=== PATIENT | female | born 1950 | race Caucasian/White ===

== ENCOUNTER → 2023-09-08 | Day surgery (SDC) | payer OTHER ==
--- NOTE | 2023-09-08 11:27 | RAD REPORT ---
EXAM DESCRIPTION: US - Breast Core BX w/US Guidance - 09/08/2023 10:45 am CLINICAL HISTORY: Left breast mass COMPARISON: Mammo and ultrasound from 08/31/2023. TECHNIQUE: The risks, benefits alternatives to the procedure were explained to the patient and infor med consent obtained. Skin and subcutaneous tissues anesthetized with lidocaine. Under sonographic guidance, 5 x 14 gauge vacuum assisted core biopsies of the mass within the left br east obtained. 2 centimeter specimens taken. Tissue given to pathology. Subsequently a localizing clip was placed into the mass. Patient experienced no immediate complication IMPRESSION: Technically successful ultrasound-guided core biopsy of the suspicious left breast mass. No immediate complications. A biopsy clip was placed.
== END ==
LOC: DS 09:37
PROVIDERS: ATTEND Family Medicine
DX: R92.8 Other abnormal and inconclusive findings on diagnostic imaging of breast (principal)
CPT/HCPCS: 19083; 88305

== ENCOUNTER 2024-06-05 09:19 | Emergency (ER) | payer OTHER ==
--- OUTSIDE RECORDS SUMMARY | 2024-06-05 09:24 | XMS REPORT | Clinical Summary ---
Author Name Unknown Organization [facility] Address [address] [place] [address] Care Team Providers Care Hadoop Administrator Name Role Phone Hollie Juarez RN Unavailable [phone] Kaley Gardiner MD Primary Care Provider [phone] Danielle Vinson RN Unavailable [email or web address] Tracey Mireles MD Unavailable [phone] Chris Pulido MD Unavailable [phone] Yeison Rucker MD Unavailable [phone] Allergies Active Allergy Reactions Criticality Noted Date Comments Chlorhexidin-Isopropyl Alcohol Hives,Rash Low 12/03 Penicillins Rash High 10/13/2023 Medications * This document contains information received from the source organization and may not represent a complete record from that organization. famotidine (PEPCID) 40 mg tablet Take 1 tablet (40 mg) by mouth daily. 07/25/19 23 Active lifitegrast (XIIDRA OPHTHALMIC) 08/18/19 20 Active SPIRONOLACTONE ORAL 06/09/19 12 Active venlafaxine (EFFEXOR) 75 mg tablet 06/09/19 12 Active Lactobac no.41/Bifidobact no.7 (PROBIOTIC-10 ORAL) Take by mouth. Active vit C/E/Zn/coppr/lut ein/zeaxan (PRESERVISION AREDS-2 ORAL) Take by mouth. Active cholecalciferol, vitD3,/vit K2 (VITAMIN D3-VITAMIN K2 ORAL) Take by mouth. Active vitamin B complex capsule Take 1 capsule by mouth daily. Active anastrozole (ARIMIDEX) 1 mg tabletIndication s:Infiltrating ductal carcinoma of upper outer quadrant of left female breast Take 1 tablet (1 mg) by mouth daily. 90 tablet 3 01/19/20 24 Active MAGNESIUM ORAL Take 1 tablet by mouth nightly as needed. Active melatonin 10 mg cap Take 1 capsule by mouth nightly as needed. Active fezolinetant (VEOZAH) 45 mg tabletIndication s:Menopausal flushing Take 1 tablet (45 mg) by mouth daily. 30 tablet 2 05/18/20 24 Active Breo Ellipta 200-25 mcg/dose 07/25/19 23 024 Discontinued MILK THISTLE ORAL Take 350 mg by mouth twice daily. 024 Discontinued( erapy completed) UNABLE TO FIND Med Name: Curaphen/ day 024 Discontinued(St op Taking at Discharge) wpdmw-2-slh-epa- dpa-fish oil 1,050-1,200 mg cap Take by mouth. 024 Discontinued(St op Taking at Discharge) LORazepam (Ativan) 0.5 mg tabletIndication s:Infiltrating ductal carcinoma of upper outer quadrant of left female breast Take 1 tablet (0.5 mg) by mouth nightly as needed for anxiety. 4 tablet 11/20/19 24 024 Discontinued(Th erapy completed) sodium hypochlorite (Dakin's Solution) 0.125% topical solutionIndicati ons:Infiltrating ductal carcinoma of upper outer quadrant of left female breast Irrigate with as directed daily. 473 mL 4 12:30 PM CDT 11/23/19 24 024 Discontinued(Th erapy completed) acetaminophen (TylenoL) 325 mg tabletIndication s:Infiltrating ductal carcinoma of upper outer quadrant of left female breast Take 2 tablets (650 mg) by mouth every 6 (six) hours. 40 tablet 4 12:30 PM CDT 11/24/19 24 024 Discontinued(Th erapy completed) traMADol (Ultram) 50 mg tabletIndication s:Infiltrating ductal carcinoma of upper outer quadrant of left female breast Take 1 tablet (50 mg) by mouth every 6 (six) hours as needed for severe pain. 15 tablet 4 12:30 PM CDT 11/24/19 24 024 Discontinued( erapy completed) ibuprofen (ADVIL,MOTRIN) 600 mg tabletIndication s:Infiltrating ductal carcinoma of upper outer quadrant of left female breast Take 1 tablet (600 mg) by mouth every 6 (six) hours as needed for moderate pain. 20 tablet 4 12:30 PM CDT 11/24/19 24 024 Discontinued( erapy completed) traMADol (Ultram) 50 mg tabletIndication s:Acquired absence of left breast and nipple Take 1 tablet (50 mg) by mouth every 6 (six) hours as needed for severe pain. 15 tablet 4 11:46 AM WASH PLANT OPERATOR 04/18/20 24 024 Discontinued( erapy completed) Active Problems Problem Noted Date Diagnosed Date Acquired absence of left breast and nipple 12/03 Infiltrating ductal carcinom a of upper outer quadrant of left female breast 10/12/2023 Cancer Staging:Clinical stage from 10/12/2023:Stage IB(cT2, cN0, cM0, G1, ER+, MT+, HER2-) - Signed by Colette Coburn APRN on 10/12/2023 Pathologic:Stage IA(pT2, pN1mi, cM0, G1, ER+, MT+, HER2-) - Signed by Kaley Gardiner MD on 12/04/2023 Estrogen receptor positive status (ER+) 10/12/19 24 Encounters * This document contains information received from the source organization and may not represent a complete record from that organization. Date Type Department Care Team Description 05/18/2024 Orders Only [facility] [address] [place] [address], 6th [place] [address] Mechelle Sharma, GORDY 05/18/2024 Telephone Gy[facility]ologic On[facility] Center [address] [place] [address], 6th [place] [address] Mechelle Sharma, GORDY 05/18/2024 Orders Only [facility] [address] [place] [address], 6th [place] [address] Mechelle Sharma APRN Menopausal flushing (Primary Dx) 05/13/2024 Orders Only Gynecologic Oncology Center - Colposcopy [address] [place] [address], 6th [place] [address] Mechelle Sharma APRN 05/10/2024 3:00 PM WASH PLANT OPERATOR - 05/10/2024 11:59 PM WASH PLANT OPERATOR Hospital Encounter Diagnostic Laboratory Center [address] [place] [address] Yeison Rucker MD Menopausal flushing; Vaginal dryness Discharge Disposition: Home 05/10/2024 1:00 PM WASH PLANT OPERATOR Consult Gynecologic Oncology Center [address] [place] [address], [address] [place], [place] [address] [address] Yeison Rucker MD Infiltrating duct carcinoma, NOS of upper-outer quadrant of breast <Female; Left> (Primary Dx); Menopausal flushing; Vaginal dryness 05/10/2024 Travel 04/29/2024 9:30 AM WASH PLANT OPERATOR Office Visit [facility] [place] [facility] [address] [place] [address] Rachelle Marin PA Acquired absence of left breast and nipple 04/29/2024 Orders Only [facility] [address] [place] [address], 5th [place] [address] Rachelle Marin PA Acquired absence of left breast (Primary Dx) 04/29/2024 Travel 04/27/2024 Telephone [facility] - Surgical Oncology [address] [place] [address], 5th [place] [address] Danielle Vinson RN 04/22/2024 10:00 AM WASH PLANT OPERATOR Telemedicine [facility] - Medical Oncology [address] [place] [address], 5th [place] [address] Keyanna Villegas MD Infiltrating duct carcinoma, NOS of upper-outer quadrant of breast <Female; Left> (Primary Dx); Menopausal flushing; Vaginal dryness 04/21/2024 Telephone [facility] - Medical Oncology [address] [place] [address], 5th [place] [address] Franci Quezada, RN 04/20/2024 Telephone [facility] [place] [facility] Surgical Oncology [address] [place] [address] Rosie Montgomery RN 04/18/2024 10:26 AM WASH PLANT OPERATOR Anesthesia Event Pre-Op/Surgery Check-In [address] [place] [address], 4th [place] [address] Jaguar Cherry MD 04/18/2024 9:25 AM WASH PLANT OPERATOR - 04/18/2024 11:30 AM WASH PLANT OPERATOR Surgery Pre-Op/Surgery Check-In [address] [place] [address], 4th [place] [address] Chris Pulido MD REPLACEMENT OF TISSUE DEWER WITH PERMANENT PROSTHESIS 04/18/2024 7:09 AM WASH PLANT OPERATOR - 04/18/2024 12:26 PM WASH PLANT OPERATOR Hospital Encounter Pre-Op/Surgery Check-In [address] [place] [address], 4th Floor [facility] [place] [address] Chris Pulido MD Infiltrating ductal carcinoma of upper outer quadrant of left female breast; Acquired absence of left breast and nipple; Infiltrating duct carcinoma of left female breast Discharge Disposition: Home 04/18/2024 Travel 04/16/2024 Travel 04/15/2024 1:00 PM WASH PLANT OPERATOR POEM Appointments Perioperative Evaluation and Management Center [address] [place] [address], [facility] [place] [address] Rachelle Marin PA Infiltrating duct carcinoma of left female breast; Acquired absence of left breast and nipple 04/06/2024 11:59 PM CDT Anesthesia Event Perioperative Evaluation [facility] Management Center [address] [place] [address], [facility] [place] [address] Danielle Oswald, HENRI 03/30/2024 10:00 AM CDT Office Visit [facility] [place] [facility] [address] [place] [address] Chris Pulido MD Infiltrating duct carcinoma of left female breast; Acquired absence of left breast and nipple 03/30/2024 Travel 03/01/2024 Telephone [facility] - Surgical Oncology [address] [place] [address], 5th [place] [address] Danielle Vinson, RN 02/26/2024 Prep for Surgery [facility] [place] [facility] [address] [place] [address] Rachelle Marin PA Infiltrating ductal carcinoma of upper outer quadrant of left female breast (Primary Dx); Acquired absence of left breast and nipple 02/25/2024 Telephone [facility] [place] - Surgical Oncology [address] [place] [address] Rosie Montgomery RN 01/29/2024 11:26 AM CDT - 01/29/2024 11:59 PM CDT Hospital Encounter Nuclear Medicine [address] [place] [address], 6th Floor, [place] [address] Keyanna Villegas MD Discharge Disposition: Home 01/29/2024 8:57 AM CDT - 01/29/2024 11:25 AM CDT Hospital Encounter Nuclear Medicine [address] [place] [address], 6th Floor, [place] [address] Keyanna Villegas MD Infiltrating ductal carcinoma of upper outer quadrant of left female breast Discharge Disposition: Home 01/29/2024 7:50 AM CDT Ancillary Procedure CT Imaging [address] [place] [address], 7th [place] [address] Keyanna Villegas MD Infiltrating ductal carcinoma of upper outer quadrant of left female breast 01/22/2024 Telephone [facility] [place] [facility] [address] [place] [address], 5th [place] [address] Danielle Vinson, RN 01/19/2024 8:00 AM CDT Follow-Up [facility] - Medical Oncology [address] [place] [address], 5th [place] [address] Keyanna Villegas MD Infiltrating ductal carcinoma of upper outer quadrant of left female breast (Primary Dx); Secondary and unspecified malignant neoplasm of axilla and upper limb lymph nodes; Hypercalcemia; Osteopenia 01/19/2024 Travel 01/06/2024 9:40 AM CDT - 01/06/2024 11:59 PM CDT Hospital Encounter Radiation Oncology [address] [place] [address], 1st [place] [address] Tracey Mireles MD Infiltrating ductal carcinoma of upper outer quadrant of left female breast Discharge Disposition: Home 01/06/2024 Travel 12/23/2023 Telephone [facility] [place] [facility] [address] [place] [address], 5th [place] [address] Ariane Gomez APRN Follow-up 12/21/2023 Orders Only Radiation Oncology [address] [place] [address], 1st Floor near [facility] [place] [address] Jordyn Coello APRN Infiltrating ductal carcinoma of upper outer quadrant of left female breast (Primary Dx) 2023 2:30 PM CDT Clinical Support [facility] [place] [facility] On[facility] [address] [place] [address] Rachelle Marin PA Luico, Elaine B RN Acquired absence of left breast and nipple 2023 Travel 12/04/2023 10:00 AM CDT Office Visit [facility] [place] [facility] [address] [place] [address], 5th [place] [address] Kaley Gardiner MD Infiltrating ductal carcinoma of upper outer quadrant of left female breast 12/04/2023 8:30 AM CDT Office Visit [facility] [place] - [facility] Surgery [address] [place] [address] Rachelle Marin PA Acquired absence of left breast and nipple (Primary Dx); Infiltrating ductal carcinoma of upper outer quadrant of left female breast; Encounter for other specified surgical aftercare 12/04/2023 Documentation [facility] [place] [facility] [address] [place] [address], 5th [place] [address] Poonam Garzon BSN 12/04/2023 Travel 12/02/2023 Orders Only [facility] [place] [facility] [address] [place] [address], 5th [place] [address] Ariane Gomez APRN Infiltrating ductal carcinoma of upper outer quadrant of left female breast (Primary Dx) 11/30/2023 Telephone [facility] [place] [facility] [address] [place] [address], 5th [place] [address] Danielle Vinson, RN 11/30/2023 Telephone [facility] [place] - Surgical Oncology [facility] [place] [address] Rosie Montgomery RN 11/23/2023 9:55 AM CDT - 11/23/2023 3:05 PM CDT Surgery MAIN OR [address] [place] [address] Kaley Gardiner MD SKIN SPARING TOTAL MASTECTOMY 11/23/2023 9:39 AM CDT Anesthesia Event MAIN OR [address] [place] [address] Eagle Jeffrey MD 11/23/2023 8:25 AM CDT - 11/23/2023 11:59 PM CDT Hospital Encounter Breast Imaging [address] [facility], 5th [place] [address] Genet Nuno APRN Discharge Disposition: Home 11/23/2023 7:40 AM CDT - 11/24/2023 1:49 PM CDT Hospital Encounter MAIN P[facility]B [address] [facility] [place] [address] Kaley Gardiner MD Infiltrating ductal carcinoma of upper outer quadrant of left female breast (Primary Dx) Discharge Disposition: Home 11/23/2023 Travel 11/20/2023 1:33 PM CDT - 11/20/2023 11:59 PM CDT Hospital Encounter Nuclear Medicine [address] [place] [address], 6th Floor, [place] [address] Genet Nuno, GORDY Discharge Disposition: Home 11/20/2023 1:00 PM CDT POEM Appointments Perioperative Evaluation and Management Center [facility], 6th [place] [address] Genet Nuno, CHECK WEIGHER Infiltrating ductal carcinoma of upper outer quadrant of left female breast 11/20/2023 12:00 PM CDT - 11/20/2023 1:32 PM CDT Hospital Encounter Nuclear Medicine [address] [place] [address], 6th Floor, [place] [address] Genet Nuno, CHECK WEIGHER Discharge Disposition: Home 11/20/2023 11:00 AM CDT - 11/20/2023 11:59 AM CDT Hospital Encounter Nuclear Medicine [address] [place] [address], 6th Floor, [place] [address] Genet Nuno, GORDY Infiltrating ductal carcinoma of upper outer quadrant of left female breast Discharge Disposition: Home 11/20/2023 9:30 AM CDT Office Visit [facility] - Surgical Oncology [address] [place] [address], 5th [place] [address] Kaley Gardiner MD Infiltrating ductal carcinoma of upper outer quadrant of left female breast 11/20/2023 Travel 11/19/2023 11:59 PM CDT Anesthesia Event Perioperative [facility] [address] [facility], 6th [place] [address] Handy Olivier, CHECK WEIGHER 11/19/2023 Telephone [facility] - Surgical Oncology [address] [place] [address], 5th [place] [address] Danielle Vinson RN 11/18/2023 10:45 AM CDT Consult [facility] [place] - Plastic Surgery [address] [place] [address] Chris Pulido MD Infiltrating ductal carcinoma of upper outer quadrant of left female breast 11/18/2023 Travel 11/17/2023 Orders Only [facility] [place] - [facility] [address] [place] [address] Rachelle Marin PA Infiltrating ductal carcinoma of upper outer quadrant of left female breast (Primary Dx) 11/13/2023 9:00 AM CDT - 11/13/2023 11:59 PM CDT Hospital Encounter Diagnostic Laboratory Center [address] [place] [address] Melinda Cintron APRN Infiltrating ductal carcinoma of upper outer quadrant of left female breast Discharge Disposition: Home 11/11/2023 10:00 AM CDT Telephone Breast Center [address] [place] [address], 5th [place] [address] Colette Coburn, Lula [facility] 11/11/2023 Orders Only Breast Center [address] [place] [address], 5th [place] [address] Lula Kaur Infiltrating ductal carcinoma of upper outer quadrant of left female breast (Primary Dx) 11/03/2023 8:15 PM CDT Ancillary Procedure Image Library [address] [place] [address] Kaley Gardiner MD Cancer 11/03/2023 8:10 PM CDT Ancillary Procedure Image Library [address] [place] [address] Kaley Gardiner MD Cancer 11/03/2023 8:05 PM CDT Ancillary Procedure Image Library [address] [place] [address] Kaley Gardiner MD Cancer 11/03/2023 8:00 PM CDT Ancillary Procedure Image Library [address] [place] [address] Kaley Gardiner MD Cancer 10/23/2023 Orders Only [facility] [place] [facility] [address] [place] [address], [facility] [place] [address] Genet Nuno APRN Infiltrating ductal carcinoma of upper outer quadrant of left female breast (Primary Dx) 10/23/2023 Prep for Surgery [facility] [place] [facility] [address] [place] [address], [address] [place], [place] [address] [address] Genet Nuno APRN Infiltrating ductal carcinoma of upper outer quadrant of left female breast (Primary Dx) 10/15/2023 Telephone [facility] [place] [facility] [address] [place] [address], [address] [place] [address] Danielle Vinson RN 10/13/2023 3:58 PM CDT - 10/13/2023 11:59 PM CDT Hospital Encounter Diagnostic Laboratory Center [address] [place] [address] Colette Coburn APRN Infiltrating ductal carcinoma of upper outer quadrant of left female breast; Estrogen receptor positive status (ER+) Discharge Disposition: Home 10/13/2023 3:30 PM CDT Office Visit Breast Center - Multidisciplinary Team [address] [place] [address], [address] [place] [address] Tracey Mireles MD Infiltrating ductal carcinoma of upper outer quadrant of left female breast (Primary Dx) 10/13/2023 3:00 PM CDT Office Visit Breast Center - Multidisciplinary Team [address] [place] [address], [facility] [place] [address] Keyanna Villegas MD Infiltrating duct carcinoma of breast <Left side> (Primary Dx); Osteopenia 10/13/2023 2:30 PM CDT Office Visit Breast Center - Multidisciplinary Team [address] [place] [address], [facility] [place] [address] Kaley Gardiner MD Infiltrating ductal carcinoma of upper outer quadrant of left female breast (Primary Dx); Estrogen receptor positive status (ER+) 10/13/2023 12:00 PM CDT Office Visit Breast Center - Multidisciplinary Team [address] [place] [address], [address]th [place] [address] Colette Coburn, GORDY Infiltrating ductal carcinoma of upper outer quadrant of left female breast (Primary Dx); Estrogen receptor positive status (ER+) 10/13/2023 10:00 AM CDT Ancillary Procedure X-Ray Outpatient Center [address] [place] [address], [address] [place] [address] Colette Coburn APRN Infiltrating ductal carcinoma of upper outer quadrant of left female breast; Estrogen receptor positive status (ER+) 10/13/2023 Telephone [facility] [place] [facility] On[facility] [address] [place] [address], [address] [place] [address] Hollie Juarez RN Follow-up 10/13/2023 Travel 10/12/2023 12:58 PM CDT - 10/12/2023 11:59 PM CDT Hospital Encounter Breast Imaging [address] [place] [address], [address] [place] [address] Colette Coburn, CHECK WEIGHER Infiltrating duct carcinoma of female breast <Left side> Discharge Disposition: Home 10/12/2023 11:30 AM CDT NPR MDA PATIENT ACCESS Kaley Gardiner MD 10/12/2023 11:14 AM CDT - 10/12/2023 12:57 PM CDT Hospital Encounter Breast Imaging [address] [place] [address], [address] [place] [address] Colette Coburn APRN Infiltrating duct carcinoma of female breast <Left side> Discharge Disposition: Home 10/12/2023 Travel 10/09/2023 9:25 PM CDT Ancillary Procedure Image Library [address] [place] [address] Leonard MD Cancer 10/09/2023 9:20 PM CDT Ancillary Procedure Image Library [address] [place] [address] Leonard MD Cancer 10/09/2023 9:15 PM CDT Ancillary Procedure Image Library [address] [place] [address] [address] Leonard MD Cancer 10/09/2023 9:10 PM CDT Ancillary Procedure Image Library [address] [place] [address] Leonard MD Cancer 10/09/2023 9:05 PM CDT Ancillary Procedure Image Library [address] [place] [address] Leonard MD Cancer 10/09/2023 9:00 PM CDT Ancillary Procedure Image Library [address] [place] [address] Leonard MD Cancer 10/09/2023 8:55 PM CDT Ancillary Procedure Image Library [address] [place] [address] Leonard MD Cancer 10/09/2023 8:50 PM CDT Ancillary Procedure Image Library [address] [place] [address] Leonard MD Cancer 10/09/2023 8:45 PM CDT Ancillary Procedure Image Library [address] [place] [address] Leonard MD Cancer 10/09/2023 8:40 PM CDT Ancillary Procedure Image Library [address] [place] [address] Leonard MD Cancer 10/09/2023 8:35 PM CDT Ancillary Procedure Image Library [address] [place] [address] Leonard MD Cancer 10/09/2023 8:30 PM CDT Ancillary Procedure Image Library [address] [place] [address] Leonard MD Cancer 10/09/2023 8:25 PM CDT Ancillary Procedure Image Library [address] [place] [address] Leonard MD Cancer 10/09/2023 8:20 PM CDT Ancillary Procedure Image Library [address] [place] [address] Lane Leonard MD Cancer 10/09/2023 8:15 PM CDT Ancillary Procedure Image Library [address] [place] [address] Lane Leonard MD Cancer 10/09/2023 8:10 PM CDT Ancillary Procedure Image Library [address] [place] [address] Lane Leonard MD Cancer 10/09/2023 8:05 PM CDT Ancillary Procedure Image Library [address] [place] [address] Lane Leonard MD Cancer 10/09/2023 8:00 PM CDT Ancillary Procedure Image Library [address] [place] [address] Lane Leonard MD Cancer 10/06/2023 Lab Requisition [facility] Chris Mclain MD Witson, Anne S., MD 09/23/2023 Telephone [facility] - Medical Oncology [address] [place] [address], [facility] [place] [address] Hollie Juarez RN New Patient 09/22/2023 Orders Only Breast Center - Multidisciplinary Team [address] [place] [address], [facility] [place] [address] Colette Coburn, CHECK WEIGHER Infiltrating duct carcinoma of female breast <Left side> (Primary Dx) after 06/06/2023 Surgical History Surgery Date Site/Laterality Comments HYSTERECTOMY 1998 partial COSMETIC SURGERY Forehead lift MT MASTECTOMY SIMPLE COMPLETE 11/23/2023 Breast/Left Procedure: SKIN SPARING TOTAL MASTECTOMY; Surgeon: Kaley Gardiner MD; Location: MAIN OR; Service: BREAST Medical devices from this surgery are in the Medical Devices section. MT INTRAOP SENTINEL LYMPH NODE ID W/DYE INJECTION 11/23/2023 Breast/Left Procedure: INTRAOPERATIVE LYMPHATIC MAPPING; Surgeon: Kaley Gardiner MD; Location: MAIN OR; Service: BREAST Medical devices from this surgery are in the Medical Devices section. MT BX/EXC LYMPH NODE OPEN DEEP AXILLARY NODE 11/23/2023 Axilla/Left Procedure: SENTINEL NODE BIOPSY - AXILLA; Surgeon: Kaley Gardiner MD; Location: MAIN OR; Service: BREAST Medical devices from this surgery are in the Medical Devices section. MT TISSUE DEWER PLACEMENT BREAST RECONSTRUCTION 11/23/2023 Breast/Left Procedure: RECONSTRUCTION OF BREAST WITH TISSUE DEWER; Surgeon: Chris Pulido MD; Location: MAIN OR; Service: PLS - PLASTIC SURGERY Medical devices from this surgery are in the Medical Devices section. MT IMPLNT BIO IMPLNT FOR SOF T TISSUE REINFORCEMENT 11/23/2023 Breast/Left Procedure: IMPLANTATION OF BIOLOGIC IMPLANT (EG, ACELLULAR DERMAL MATRIX) FOR SOFT TISSUE REINFORCEMENT; Surgeon: Chris Pulido MD; Location: MAIN OR; Service: PLS - PLASTIC SURGERY Medical devices from this surgery are in the Medical Devices section. LIPOSUCTION MT REPLACEMENT TISSUE DEWER W/PERMANENT IMPLANT 04/18/2024 Breast/Left Procedure: REPLACEMENT OF TISSUE DEWER WITH PERMANENT PROSTHESIS; Surgeon: Chris Pulido MD; Location: [facility]; Service: PLS - PLASTIC SURGERY Medical devices from this surgery are in the Medical Devices section. Medical History Medical History Date Comments Hypertension 1997 Hyperlipidemia 2009 Allergic rhinitis 2019 take allergy s hots Asthma August 2022 Menopause 2007 Arthritis 2019 Lower back Anxiety 1974 Family History Medical History Relation Name Comments Prostate cancer Brother Vance Osorio s/p surgery , localized Leukemia Maternal Uncle Ovarian cancer Mother Duane Cadena Diagnosed 2001 Breast cancer Paternal Cousin 1 Suspected to have come other side of the family Relation Name Status Comments Brother Vance Osorio Alive Father (Age 49) d. sepsis Grandson 1 Alive Grandson 2 Alive Maternal Grandfather (Age 50s) Maternal Grandmother (Age 70s) Maternal Uncle (Age 3) Mother Duane Cadena (Age 81) Niece Alive Paternal Aunt 1 (Age 80s) Paternal Aunt 2 (Age 80s) Paternal Cousin 1 (Age 30s) Paternal Cousin 2 Alive Paternal Cousin 3 Alive Paternal Cousin 4 Alive Paternal Cousin 5 Alive Paternal Cousin 6 Alive Paternal Cousin 7 Alive Paternal Grandfather (Age 60s) Paternal Grandmother (Age 60s) Paternal Uncle (Age 80s) Sister 1 Alive Sister 2 Alive Sister 3 (Age 75) Son Alive Social History Tobacco Use Types Packs/Day Years Used Date Smoking Tobacco: Never Smokeless Tobacco: Never Alcohol Use Standard Drinks/Week Comments Yes 10 (1 standard drink = 0.6 oz pu re alcohol) Comments No Sex and Gender Information Value Date Recorded Sex Assigned at Female 09/22/2023 8:09 AM CDT Legal Sex Female 7:49 AM CDT Gender Identity Female 09/22/2023 8:09 AM CDT Sexual Orientation Straight 09/22/2023 8: 09 AM CDT Travel History Travel Start Travel End [facility] 01/08/2024 01/17/2024 Obstetrics History Para Term AB IAB SAB Ectopic Multiple Livin g Live Births 1 1 1 Date Outcome GA Total Labor Labor/2nd/3rd Weight Sex Type Anes PTL Fiona A1 A5 Name Clin Para Comments PARADI TENDER History: Menarche:15 G 1 P1 Age at first parity:21 history:3 months control pill use:2 years IVF: None Hormone Replacement Therapy use:8 years Menopause: Postmenopausal Bra Size: 36D Last Filed Vital Signs Vital Sign Reading Time Taken Comments Blood Pressure 148/87 05/10/2024 1:09 PM WASH PLANT OPERATOR Pulse 64 05/10/2024 1:09 PM WASH PLANT OPERATOR Temperature 36.9 C (98.4 F) 05/10/2024 1:09 PM CS T Respiratory Rate 18 05/10/2024 1:09 PM WASH PLANT OPERATOR Oxygen Saturation 96% 05/10/2024 1:09 PM WASH PLANT OPERATOR Inhaled Oxygen Concentration - - Weight 62.1 kg (136 lb 14.5 oz) 05/10/2024 1:05 PM WASH PLANT OPERATOR Height 160 cm (5' 3") 11/23/2023 4:15 PM CDT Body Mass Index 24.25 11/23/2023 4:15 PM CDT Plan of Treatment Upcoming Encounters Date Type Department Care Team (Late st Contact Info) Description 08/02/2024 1:30 PM WASH PLANT OPERATOR [facility] [address] [place] [address], 5th [place] [address] Rachelle Marin PA [address] [place] [address] [email or web address] RN [facility] [place] [address] [email or web address] 10/21/2024 9:00 AM CDT Follow-Up [facility] [place] - Medical Oncology [address] [place] [address], 5th [place] [address] Keyanna Villegas MD [facility] [place] [address] [email or web address] 12/02/2024 8:05 AM CDT Appointment Breast Imaging [address] [place] [address], 5th [place] [address] Genet Nuno, CHECK WEIGHER [facility] [place] [address] [email or web address] 12/02/2024 10:30 AM CDT Follow-Up [facility] - Surgical Oncology [address] [place] [address], 5th [place] [address] Kaley Gardiner MD [facility] [place] [address] [email or web address] Health Maintenance Due Date Last Done Comments COVID-19 Vaccine (#1) 1955 Pneumococcal Vaccine: 65+ Years (1 of 1 - PCV) 018 Influenza Vaccine (#1) 2024 Medical Devices Implanted Type Area Blender Device Identifier Shelf Expiration Date Model / Serial / Lot Francisco Cohesive Silicone Implant, Low Plus Profile 490cc - 15x3.9cm - [id number] Implanted:Qty : 1 on 04/18/2024 by Chris Pulido MD at [facility] Breast Left: Breast [employer] [id number] 03/30/2028 SCLP-490 / [id number] / [id number] Matrix Tiss [id number] Aldrm Slct - [id number] Implanted:Qty : 1 on 11/23/2023 by Chris Pulido MD at [facility] Skin/Tiss ue Left: Breast [employer] 08/05/2025 [id number] / [id number] Explanted Type Area Blender Device Identifier Shelf Expiration Date Model / Serial / Lot Moderate Height Breast Smooth Tissue Bottle Capper W Suture Tabs 600cc-[id number]. 3cm - [id number] Implanted:Qty: 1 on 11/23/2023 by Chris Pulido MD at [facility] Explanted:Qty: 1 on 04/18/2024 by Chris Pulido MD Breast Left: Breast [employer] 10/23/2024 [id number] / [id number] / [id number] Procedures Procedure Name Priority Date/Time Associated Diagnosis Comments HEPATIC FUNCTION PANEL Routine 3:05 PM WASH PLANT OPERATOR Menopausal flushing Vaginal dryness PATHOLOGY SURGICAL INTERPRETATION Routine 04/18/2024 10:56 AM WASH PLANT OPERATOR Infiltrating ductal carcinoma of upper outer quadrant of left female breast Acquired absence of left breast and nipple MT REPLACEMENT TISSUE DEWER W/PERMANENT IMPLANT 04/18/2024 10:09 AM WASH PLANT OPERATOR Infiltrating ductal carcinoma of upper outer quadrant of left female breast Acquired absence of left breast and nipple Special Needs [id number] PRINCE POC GLUCOSE SCREEN Routine 04/18/2024 8: 22 AM WASH PLANT OPERATOR .CBC Routine 03/30/2024 9:18 AM CDT Infiltrating duct carcinoma of left female breast Acquired absence of left breast and nipple HEMOGLOBIN A1C Routine 03/30/2024 9:18 AM CDT Infiltrating duct carcinoma of left female breast Acquired absence of left breast and nipple GLUCOSE, RANDOM Routine 03/30/2024 9:18 AM CDT Infiltrating duct carcinoma of left female breast Acquired absence of left breast and nipple CREATININE Routine 03/30/2024 9:18 AM CDT Infiltrating duct carcinoma of left female breast Acquired absence of left breast and nipple BLOOD UREA NITROGEN Routine 03/30/2024 9 :18 AM CDT Infiltrating duct carcinoma of left female breast Acquired absence of left breast and nipple ELECTROLYTE PANEL Routine 03/30/2024 9:1 8 AM CDT Infiltrating duct carcinoma of left female breast Acquired absence of left breast and nipple COMPLETE BLOOD COUNT W/ DIFFERENTIAL Routine 03/30/2024 9:18 AM CDT Infiltrating duct carcinoma of left female breast Acquired absence of left breast and nipple NM BONE SCAN WHOLE BODY Routine 01/29/20 12:02 PM CDT Infiltrating ductal carcinoma of upper outer quadrant of left female breast CT CHEST ABDOMEN PELVIS W CONTRAST Routine 01/29/2024 8:54 AM CDT Infiltrating ductal carcinoma of upper outer quadrant of left female breast POC CREATININE Routine 01/29/2024 8:22 AM CDT TISSUE EXPANSION Routine 12/04/2023 8:50 AM CDT Acquired absence of left breast and nipple AP ONCOTYPEDX (SEND OUT) MATERIAL REQUEST Routine 12/02/2023 7:14 PM CDT Infiltrating ductal carcinoma of upper outer quadrant of left female breast NM DOSING APPOINTMENT Routine 11/23/2023 6:02 PM CDT Infiltrating ductal carcinoma of upper outer quadrant of left female breast PATHOLOGY SURGICAL INTERPRETATION Routine 11/23/2023 11:14 AM CDT Infiltrating ductal carcinoma of upper outer quadrant of left female breast MT IMPLNT BIO IMPLNT FOR SOFT TISSUE REINFORCEMENT 11/23/2023 9:09 AM CDT Infiltrating ductal carcinoma of upper outer quadrant of left female breast Special Needs MTL@0800 MT TISSUE DEWER PLACEMENT BREAST RECONSTRUCTION 11/23/2023 9:09 AM CDT Infiltrating ductal carcinoma of upper outer quadrant of left female breast Special Needs MTL@0800 MT BX/EXC LYMPH NODE OPEN DEEP AXILLARY NODE 11/23/2023 9:09 AM CDT Infiltrating ductal carcinoma of upper outer quadrant of left female breast Special Needs MTL@0800 MT INTRAOP SENTINEL LYMPH NODE ID W/DYE INJECTION 11/23/2023 9:09 AM CDT Infiltrating ductal carcinoma of upper outer quadrant of left female breast Special Needs MTL@0800 MT MASTECTOMY SIMPLE COMPLETE 11/23/2023 9:09 AM CDT Infiltrating ductal carcinoma of upper outer quadrant of left female breast Special Needs MTL@0800 BREAST SPECIMEN RADIOGRAPH Routine 11/23/2023 8:25 AM CDT Infiltrating ductal carcinoma of upper outer quadrant of left female breast SCAN GENETIC TESTING RESULTS 11/23/2023 NM LYMPHOSCINTIGRAPHY BREAST Routine 11/20/2023 1:40 PM CDT Infiltrating ductal carcinoma of upper outer quadrant of left female breast ZINVITAE Routine 11/13/2023 9:08 AM CDT Infiltrating ductal carcinoma of upper outer quadrant of left female breast SCAN GENETIC TESTING RESULTS 11/13/2023 .CBC Routine 10/13/2023 4:05 PM CDT Infiltrating ductal carcinoma of upper outer quadrant of left female breast Estrogen receptor positive status (ER+) PROTHROMBIN TIME Routine 10/13/2023 4:05 PM CDT Infiltrating ductal carcinoma of upper outer quadrant of left female breast Estrogen receptor positive status (ER+) APTT Routine 10/13/2023 4:05 PM CDT Infiltrating ductal carcinoma of upper outer quadrant of left female breast Estrogen receptor positive status (ER+) THYROID STIMULATING HORMONE Routine 10/13/2023 4:05 PM CDT Infiltrating ductal carcinoma of upper outer quadrant of left female breast Estrogen receptor positive status (ER+) HEMOGLOBIN A1C Routine 10/13/2023 4:05 PM CDT Infiltrating ductal carcinoma of upper outer quadrant of left female breast Estrogen receptor positive status (ER+) FREE THYROXINE Routine 10/13/2023 4:05 PM CDT Infiltrating ductal carcinoma of upper outer quadrant of left female breast Estrogen receptor positive status (ER+) COMPREHENSIVE METABOLIC PANEL Routine 10/13/2023 4:05 PM CDT Infiltrating ductal carcinoma of upper outer quadrant of left female breast Estrogen receptor positive status (ER+) COMPLETE BLOOD COUNT W/ DIFFERENTIAL Routine 10/13/2023 4:05 PM CDT Infiltrating ductal carcinoma of upper outer quadrant of left female breast Estrogen receptor positive status (ER+) XR CHEST 2 VW Routine 10/13/2023 4:00 PM CDT Infiltrating ductal carcinoma of upper outer quadrant of left female breast Estrogen receptor positive status (ER+) EKG, 12-LEAD (SCHEDULED) Routine 10/13/2023 Infiltrating ductal carcinoma of upper outer quadrant of left female breast Estrogen receptor positive status (ER+) US CHEST Routine 10/12/2023 2:18 PM CDT Infiltrating duct carcinoma of female breast <Left side> US BREAST COMPLETE LEFT Routine 10/12/19 2:18 PM CDT Infiltrating duct carcinoma of female breast <Left side> MAMMO DIGITAL DIAGNOSTIC BILATERAL W AASHISH Routine 10/12/2023 12:58 PM CDT Infiltrating duct carcinoma of female breast <Left side> OSI US BREAST BIOPSY Routine 09/08/2023 12:36 PM CDT Cancer PATHOLOGY OUTSIDE INTERPRETATION Routine 09/08/2023 OSI MAMMO BILATERAL Routine 08/31/2023 12:36 PM CDT Cancer OSI BREAST Routine 08/31/2023 12:36 PM CDT Cancer OSI BREAST Routine 08/31/2023 12:36 PM CDT Cancer after 06/06/2023 Results * (ABNORMAL) Hepatic Function Panel (05/10/2024 3:05 PM WASH PLANT OPERATOR) Bilirubin Total 0.5 0.0 - 1.2 mg/dL 05/10/2024 3:40 PM [facility] Comment:Indocyanine Green (I CG) may cause falsely elevated bilirubin results. Total and direct bilirubin must not be measured from samples containing indocyanine green. False elevation of total bilirubin can be seen in patients with IgG concentrations above 28 g/L. Bilirubin Direct 0.1 0.0 - 0.2 mg/dL 05/10/2024 3:40 PM [facility] Comment:Indocyanine Green (I CG) may cause falsely elevated bilirubin results. Total and direct bilirubin must not be measured from samples containing indocyanine green. Bilirubin Indirect 0.4 0.0 - 1.0 mg/dL 05/10/2024 3:40 PM [facility] Tot Protein 8.0 6.4 - 8.3 gm/dL 05/10/2024 3:40 PM [facility] Alkaline Phosphatase 97 35 - 104 U/L 05/10/2024 3:40 PM [facility] Albumin Level 5.0 3.5 - 5.2 gm/dL 05/10/2024 3:40 PM [facility] AST 26 <=32 U/L 05/10/2024 3:40 PM [facility] ALT 35(H) <=33 U/L 05/10/2024 3:40 PM [facility] Blood Peripheral blood specimen / Unknown Venipuncture / Unknown 05/10/2024 3:05 PM WASH PLANT OPERATOR 05/10/2024 3:11 PM WASH PLANT OPERATOR us Yeison Rucker MD LAB BLOOD ORDERABLES Final R esult [facility] [address] [facility] [place] [address] * Pathology Surgical Interpretation (04/18/2024 10:56 AM WASH PLANT OPERATOR) Only the most recent of2 resultswithin the time period is included. Submitted Clinical History Infiltrating ductal carcinoma of upper outer quadrant of left female breast [C50.412] Acquired absence of left breast and nipple [Z90.12] 04/19/2024 11:58 AM WASH PLANT OPERATOR [employer] [facility] Diagnosis A. Left breast, mastectomy skin, excision: Skin with scar and perivascular chronic lymphocytic infiltrate, no tumor present. B. Left breast, tissue river pilot, removal: Tissue river pilot (medical field representative), gross diagnosis only. 04/19/2024 11:58 AM [facility] Gross Description A: Breast, left, mastectomy skin, permanent: A 4.5 x 0.5 x 0.4 cm unoriented strip of pink skin remarkable for a linear well-healed scar that extends the entire length. SECTION CODE: A1-accounts receivable representative sections KR Cold Ischemia and Fixation Times Meet requirements specified in latest version of the ASCO/CAP guidelines. Cold ischemia time: 24m Fixative: 10% Neutral Buffered Formalin In fixative: 04/18/2024 11:20 AM Fixation time: > 6 hours and < 72 hours B: Breast, left, tissue river pilot, for id only: A 15.5 x 14.0 x 2.7 cm [employer]er[employer] brand tissue river pilot filled with clear fluid. Identifying information is as follows: Style SMV, lot #[id number], 15 cm-600 cc. Gross only. KR 04/19/2024 11:58 AM [facility] Biomarker Block(s) Block for biomarker testing: N/A Normal block: N/A 04/19/2024 11:58 AM [facility] Disclaimer "Some tests reported here may have been developed and performance characteristics determined by [facility] Pathology and Laboratory Medicine. These tests have not been specifically cleared or approved by the U.S. Food and Drug Administration. If applicable, controls were reviewed and showed appropriate reactivity." 04/19/2024 11:58 AM [facility] Tissue (Breast, Left) 04/18/2024 10:56 AM WASH PLANT OPERATOR 04/18/2024 11:23 AM WASH PLANT OPERATOR Foreign Object (Breast, Left, Tissue Bottle Capper) 04/18/2024 10:57 AM WASH PLANT OPERATOR 04/18/2024 11:24 AM WASH PLANT OPERATOR Chris Pulido MD LAB PATHOLOGY ORDERABLES Dulce l Result Performing Organization Address [facility]/ZIP Co de Phone Number [address] [address], * (ABNORMAL) POC Glucose Screen - Fingerstick (04/18/2024 8:22 AM WASH PLANT OPERATOR) Glucose Screen 113(H) 70 - 99 mg/dL 04/18/2024 8:27 AM WASH PLANT OPERATOR [facility] POC Sample Type Venous 04/18/2024 8:27 AM [facility] Blood 04/18/2024 8:22 AM WASH PLANT OPERATOR 04/18/2024 8:27 AM WASH PLANT OPERATOR Narrative [facility] - 04/18/2024 8:27 AM WASH PLANT OPERATOR Capillary blood samples, e.g. obtained by fingerstick, may have inaccurate results in patients with decreased peripheral blood flow. Method description: All results are measured using Electrochemistry test methodology. The glucose in the sample mixes with the reagents on the test strip. The reaction produces an electric current. The amount of current produced is proportional to the glucose concentration in the blood. All POC Glucose screen test results, including critical values, must be interpreted and evaluated in the context of the patients' clinical findings. It is recommended to confirm any questionable test results by core lab methodology. Chris Pulido MD POCT ORDERABLES - DEVICE Dulce l Result Performing Organization Address [facility] Co de Phone Number [facility] Unless otherwise noted, all lab tests performed by: Division of Pathology and Laboratory Medicine [address] [place] [id number] * Glucose, Random (03/30/2024 9:18 AM CDT) Glucose Random 107 70 - 199 mg/dL 03/30/2024 9:43 AM CDT [facility] Blood Peripheral blood specimen / Unknown Venipuncture / Unknown 03/30/2024 9:18 AM CDT 03/30/2024 9:18 AM CDT Narrative [facility] [place] - 03/30/2024 9:43 AM CDT Effective 01/02/16, the glucose reference intervals have been updated based on [employer] Diabetes Association guidelines (Standards of Medical Care in Diabetes 2016. Diabetes Care 2016; 39: S13-S22). Fasting blood glucose: Normal: 70-99 mg/dL Impaired fasting glucose (increased risk for diabetes or pre-diabetes): 100-125 mg/dL Diabetes mellitus: >/=126 mg/dL Random blood glucose: Normal: 70-199 mg/dL Note: Random glucose >100 mg/dL is associated with increased risk for diabetes us Rachelle COLE LAB BLOOD ORDERABLES F inal Result [facility] [address], [address] [place] [address] * (ABNORMAL) .CBC (03/30/2024 9:18 AM CDT) Only the most recent of2 resultswithin the time period is included. White Blood Cell 6.7 4.1 - 10.5 K/uL 03/30/2024 9:22 AM CDT [facility] [place] Red Blood Cell 4.63 3.99 - 5.46 M/uL 03/30/2024 9:22 AM CDT [place] Hemoglobin 14.3 12.2 - 15.3 g/dL 03/30/2024 9:22 AM CDT [place] [place] Hematocrit 43.0 36.4 - 46.8 % 03/30/2024 9:22 AM CDT [place] Mean Cell Volume 93 82 - 99 fL 03/30/2024 9:22 AM CDT [place] Mean Cell Hemoglobin 30.9 26.6 - 33.2 pg 03/30/2024 9:22 AM CDT [place] Mean Cell Hemoglobin Concentration 33.3 31.1 - 35.2 g/dL 03/30/2024 9:22 AM CDT [place] RDW-SD 42.4 37.5 - 49.7 fL 03/30/2024 9:22 AM CDT [place] Red Cell Diameter Width 12.7 11.6 - 15.5 % 03/30/2024 9:22 AM CDT [place] Platelet 195 160 - 397 K/uL 03/30/2024 9:22 AM CDT [place] Mean Platelet Volume 10.7 9.1 - 12.6 fL 03/30/2024 9:22 AM CDT [place] Neutrophil % 38.6(L) 43.2 - 72.7 % 03/30/2024 9:22 AM CDT [place] Lymphocyte % 42.9 16.8 - 46.2 % 03/30/2024 9:22 AM CDT [place] Monocyte % 13.1(H) 5.1 - 12.5 % 03/30/2024 9:22 AM CDT [place] Eosinophil % 5.1 0.4 - 6.3 % 03/30/2024 9:22 AM CDT [place] Basophil % 0.3 0.2 - 1.4 % 03/30/2024 9:22 AM CDT [place] Neutrophil Abs 2.57 1.95 - 7.25 K/uL 03/30/2024 9:22 AM CDT [place] Lymphocyte Abs 2.86 1.01 - 3.24 K/uL 03/30/2024 9:22 AM CDT [place] Monocyte Abs 0.87(H) 0.24 - 0.85 K/uL 03/30/2024 9:22 AM CDT [place] Eosinophil Abs 0.34 0.02 - 0.50 K/uL 03/30/2024 9:22 AM CDT [place] Basophil Abs 0.02 0.02 - 0.09 K/uL 03/30/2024 9:22 AM CDT [place] Blood Peripheral blood specimen / Unknown Venipuncture / Unknown 03/30/2024 9:18 AM CDT 03/30/2024 9:18 AM CDT us Rachelle COLE LAB BLOOD ORDERABLES F inal Result NIKKI DAVIS [facility] [place] [address], [address] [place] [address] * BUN (03/30/2024 9:18 AM CDT) BUN 20 6 - 23 mg/dL 03/30/2024 9 :43 AM CDT [place] Blood Peripheral blood specimen / Unknown Venipuncture / Unknown 03/30/2024 9:18 AM CDT 03/30/2024 9:18 AM CDT Rachelle COLE LAB BLOOD ORDERABLES F inal Result Performing Organization Address City/[facility] Co de Phone Number [facility] [place] [address], [address] [place] [address] * (ABNORMAL) Hemoglobin A1c (03/30/2024 9:18 AM CDT) Only the most recent of2 resultswithin the time period is included. Hemoglobin A1c 6.1(H) 4.3 - 5.6 % 03/30/2024 9:39 AM CDT [facility] Blood Peripheral blood specimen / Unknown Venipuncture / Unknown 03/30/2024 9:18 AM CDT 03/30/2024 9:18 AM CDT Narrative [facility] - 03/30/2024 9:39 AM CDT HbA1c values >=6.5% are diagnostic of diabetes mellitus. Diagnosis should be confirmed by repeat testing. Therapeutic Action suggested: >8.0% HbA1c; Goal of therapy: <7.0% HbA1c Rachelle COLE LAB BLOOD ORDERABLES F inal Result [facility] [address], [address] [place] [address] * Creatinine (03/30/2024 9:18 AM CDT) Creatinine 0.80 0.51 - 0.95 mg/dL 03/30/2024 9:43 AM CDT [facility] eGFR 79 >=60 mL/min/1.7 3 sq. m 03/30/2024 9:43 AM CDT [facility] Comment: The eGFRcr is calculated with the 2020 CKD-EPI creatinine equation using creatinine, patient's age, and sex for adults 18 years of age and older. Other factors, especially muscle mass, may affect accuracy and need to be considered. According to the Kidney Disease: Improving Global Outcomes (KDIGO) CKD Work Group 2012 Clinical Practice Guideline, chronic kidney disease (CKD) is defined as the abnormalities of kidney structure or function, present for more than 3 months, with implications for health. CKD should be classified by cause, GFR category, and albuminuria category. KDIGO guidelines provide the following GFR categories. Stage / Description / GFR mL/min/1.73 m2: G1* / Normal or high / >= 90 G2* / Mildly decreased / 60-89 G3a / Mildly to moderately decreased / 45-59 G3b / Moderately to severely decreased / 30-44 G4 / Severely decreased / 15-29 G5 / Kidney failure / <15 *In the absence of evidence of kidney damage, neither G1 nor G2 fulfill criteria for CKD. Blood Peripheral blood specimen / Unknown Venipuncture / Unknown 03/30/2024 9:18 AM CDT 03/30/2024 9:18 AM CDT us Rachelle COLE LAB BLOOD ORDERABLES F inal Result [facility] [address], [address] [place] [address] * Electrolyte Panel (03/30/2024 9:18 AM CDT) Sodium Level 137 136 - 145 mmol/L 03/30/2024 9:43 AM CDT [place] Potassium Level 4.2 3.4 - 4.5 mmol/L 03/30/2024 9:43 AM CDT [facility] [place] Chloride 99 98 - 107 mmol/L 03/30/2024 9:43 AM CDT [place] CO2 28 22 - 29 mmol/L 03/30/2024 9:43 AM CDT [place] [facility] Anion Gap 10 4 - 14 mmol/L 03/30/2024 9:43 AM CDT [place] [facility] Blood Peripheral blood specimen / Unknown Venipuncture / Unknown 03/30/2024 9:18 AM CDT 03/30/2024 9:18 AM CDT us Rachelle COLE LAB BLOOD ORDERABLES F inal Result [place] [facility] [place] [address], [address] [place] [address] * NM Bone Scan Whole Body (01/29/2024 12:02 PM CDT) Anatomical Region Laterality Modality Whole Body Nuclear Medicine 01/29/2024 12:1 7 PM CDT Impressions 01/29/2024 12:19 PM CDT No definite evidence of osseous metastases. ACTIONABLE ITEMS/RECOMMENDATIONS*: None. *An Actionable Finding is a finding that may be unrelated to the original reason for imaging but potentially actionable, meaning further investigation may be necessary. The Actionable Findings Vigilance Unit (AFVU) assists medical providers with responding to additional radiologic findings that are unexpected and potentially actionable. Narrative 01/29/2024 12:19 PM CDT FULL RESULT: Examination: Whole-Body Bone Scan, 01/29/2024 12:02 PM Clinical History: A 73-year-old female with breast cancer. Indication: Evaluate for osseous metastases. Technique: Following the intravenous administration of 22 mCi of technetium-99m MDP, anterior and posterior delayed whole-body planar images were acquired. Findings: Foci of increased radiotracer activity in the cervical spine, thoracic spine, and lumbar spine are likely degenerative in nature. Both kidneys are visualized. Procedure Note Lei Morgan MD - 01/29/2024 FULL RESULT: Examination: Whole-Body Bone Scan, 01/29/2024 12:02 PM Clinical History: A 73-year-old female with breast cancer. Indication: Evaluate for osseous metastases. Technique: Following the intravenous administration of 22 mCi oftechnetium-99m MDP, anterior and posterior delayed whole-body planarimages were acquired. Findings: Foci of increased radiotracer activity in the cervical spine,thoracic spine, and lumbar spine are likely degenerative in nature. Bothkidneys are visualized. IMPRESSION: No definite evidence of osseous metastases. ACTIONABLE ITEMS/RECOMMENDATIONS*: None. *An Actionable Finding is a finding that may be unrelated to the originalreason for imaging but potentially actionable, meaning furtherinvestigation may be necessary. The Actionable Findings Vigilance Unit(AFVU) assists medical providers with responding to additional radiologicfindings that are unexpected and potentially actionable. Keyanna WILKINS NM ORDERABLES Final Res ult * CT Chest Abdomen Pelvis with Contrast (01/29/2024 8:54 AM CDT) Anatomical Region Laterality Modality Abdomen, Pelvis, Chest Computed Tomography 01/29/2024 9:07 AM CDT Impressions 01/29/2024 9:23 AM CDT Left mastectomy and left axillary lymphadenectomy. No distant metastatic disease identified. Prominent soft tissue in the anal canal could be related to hemorrhoids, to be correlated with physical exam. Other incidental findings as above-described. ACTIONABLE ITEMS/RECOMMENDATIONS*: None. *An Actionable Finding is a finding that may be unrelated to the original reason for imaging but potentially actionable, meaning further investigation may be necessary. The Actionable Findings Vigilance Unit (AFVU) assists medical providers with responding to additional radiologic findings that are unexpected and potentially actionable. Narrative 01/29/2024 9:23 AM CDT FULL RESULT: Examination: CT CHEST ABDOMEN PELVIS W CONTRAST on 01/29/2024 8:54 AM. Clinical History: Infiltrating ductal carcinoma of upper outer quadrant of left female breast. Indication: Cancer staging or restaging. Comparison: None. Technique: CT CHEST ABDOMEN PELVIS W CONTRAST. Findings: CHEST: Lungs and Pleura: * There is a nonspecific 3 mm groundglass nodule in the left upper lobe in image 73 series 302 * * No consolidation. Bibasilar atelectasis * No pleural effusion. Cardiomediastinum: The heart is normal in size. No pericardial effusion. Small hiatal hernia. Lymph nodes: No lymphadenopathy. Postsurgical changes in the left axilla. Left mastectomy and tissue expanders reconstruction. ABDOMEN AND PELVIS: Hepatobiliary: * No suspicious hepatic lesion. * No biliary dilatation. * Cholelithiasis. Spleen: No splenomegaly. Pancreas: No solid mass or ductal dilatation. Adrenal Glands: No mass. Kidneys, Ureters: * No suspicious renal lesion. * No hydronephrosis. Urinary Bladder: No bladder mass. Gastrointestinal Tract: No obstruction. Small gastric diverticulum at the fundus image 150. Prominent soft tissue in the anal canal such as in image 22 and series 301 and image 80 of series 605 may be related to hemorrhoids, and can be correlated with physical exam. Pelvic Organs: Hysterectomy Peritoneum/Retroperitoneum: No ascites. Lymph Nodes: No lymphadenopathy. MUSCULOSKELETAL: No suspicious skeletal lesion. Procedure Note Markel Daley MD - 01/29/2024 FULL RESULT: Examination: CT CHEST ABDOMEN PELVIS W CONTRAST on 01/29/2024 8:54 AM. Clinical History: Infiltrating ductal carcinoma of upper outer quadrant ofleft female breast. Indication: Cancer staging or restaging. Comparison: None. Technique: CT CHEST ABDOMEN PELVIS W CONTRAST. Findings: CHEST: Lungs and Pleura: * There is a nonspecific 3 mm groundglass nodule in the left upper lobein image 73 series 302 * * No consolidation. Bibasilar atelectasis * No pleural effusion. Cardiomediastinum: The heart is normal in size. No pericardial effusion.Small hiatal hernia. Lymph nodes: No lymphadenopathy. Postsurgical changes in the leftaxilla. Left mastectomy and tissue expanders reconstruction. ABDOMEN AND PELVIS: Hepatobiliary: * No suspicious hepatic lesion. * No biliary dilatation. * Cholelithiasis. Spleen: No splenomegaly. Pancreas: No solid mass or ductal dilatation. Adrenal Glands: No mass. Kidneys, Ureters: * No suspicious renal lesion. * No hydronephrosis. Urinary Bladder: No bladder mass. Gastrointestinal Tract: No obstruction. Small gastric diverticulum at thefundus image 150. Prominent soft tissue in the anal canal such as in image22 and series 301 and image 80 of series 605 may be related tohemorrhoids, and can be correlated with physical exam. Pelvic Organs: Hysterectomy Peritoneum/Retroperitoneum: No ascites. Lymph Nodes: No lymphadenopathy. MUSCULOSKELETAL: No suspicious skeletal lesion. IMPRESSION: Left mastectomy and left axillary lymphadenectomy. No distant metastatic disease identified. Prominent soft tissue in the anal canal could be related to hemorrhoids,to be correlated with physical exam. Other incidental findings as above-described. ACTIONABLE ITEMS/RECOMMENDATIONS*: None. *An Actionable Finding is a finding that may be unrelated to the originalreason for imaging but potentially actionable, meaning furtherinvestigation may be necessary. The Actionable Findings Vigilance Unit(AFVU) assists medical providers with responding to additional radiologicfindings that are unexpected and potentially actionable. us Keyanna Villegas MD IMG CT ORDERABLES Final Res ult * POC Creatinine (01/29/2024 8:22 AM CDT) POC Creatinine 0.8 0.6 - 1.3 mg/dL 01/29/2024 8:26 AM CDT [facility] [place] Comment:Medications, especia lly hydroxyurea or supplements, such as ascorbate, can interfere with test results causing a falsely and significantly higher result than expected. If a problem is suspected with a patient's result, a sample should be sent to the laboratory for confirmatory testing. POC eGFR 79 >=60 mL/min/1.7 3 sq. m 01/29/2024 8:26 AM CDT [facility] [place] Comment: The eGFRcr is calculated with the 2020 CKD-EPI creatinine equation using creatinine, patient's age, and sex for adults 18 years of age and older. Other factors, especially muscle mass, may affect accuracy and need to be considered. According to the Kidney Disease: Improving Global Outcomes (KDIGO) CKD Work Group 2012 Clinical Practice Guideline, chronic kidney disease (CKD) is defined as the abnormalities of kidney structure or function, present for more than 3 months, with implications for health. CKD should be classified by cause, GFR category, and albuminuria category. KDIGO guidelines provide the following GFR categories. Stage / Description / GFR mL/min/1.73 m2: G1* / Normal or high / >= 90 G2* / Mildly decreased / 60-89 G3a / Mildly to moderately decreased / 45-59 G3b / Moderately to severely decreased / 30-44 G4 / Severely decreased / 15-29 G5 / Kidney failure / <15 *In the absence of evidence of kidney damage, neither G1 nor G2 fulfill criteria for CKD. Blood 01/29/2024 8:22 AM CDT 01/29/2024 8:26 AM CDT Narrative [facility] [place] - 01/29/2024 8:26 AM CDT Method description: The i-STAT is an analyzer used for in vitro quantification of various analytes in whole blood. The device uses a single disposable cartridge which contains microfabricated sensors, a calibration solution, fluidics system, and a waste chamber. Each test cartridge contains chemically sensitive biosensors on a silicon chip that are configured to perform specific tests. The microfabricated sensors measure analyte concentration by an electrochemical assay. Keyanna Villegas MD POCT ORDERABLES - DEVICE Fi nal Result [facility] [place] Unless otherwise noted, all lab tests performed by: Division of Pathology and Laboratory Medicine [address] [place] [id number] * TISSUE EXPANSION (12/04/2023 8:50 AM CDT) Rachelle Zamora PA - 12/04/2023 8:50 AM CDT Rachelle Marin PA 12/04/2023 9:07 AM Tissue expansion: Left Breast - Left Prepectoral Pre-Procedure: - [place] Protocol (Time-out) performed. Procedure Details: - The patient was placed in the supine position at 45 degrees. - The tissue river pilot ports were located utilizing a magnafinder. - The area was prepped utilizing chlorhexidine. - A 21G butterfly needle was introduced into the site. Left Breast: - 400 cc of air was removed from the river pilot. - 400 cc of saline was infused today. - Post-procedural volume is 400 cc. Post-Procedure: - The needle was withdrawn and sterile dressing was applied. - The patient was sat in the upright position and denied significant discomfort. - Capillary refill was noted to be intact. - The procedure was tolerated well and there were no complications noted. Complications: None Rachelle COLE PROCEDURE/MINOR SURGIC AL ORDERABLES Final Result * OncotypeDX (send out) Material Request (12/02/2023 7:14 PM CDT) Archived Material The test is to be performed on tissue from case [id number]. The case report, slides, and blocks for the cited accession were retrieved from archives. The pathologist examined the candidate slides and selected case material appropriate to the specifications of the ordered molecular analysis. The selected material(s) were prepared and forwarded to reference laboratory where the subject molecular test will be performed. Results will be reported separately. 12/11/2023 11:27 AM CDT [facility] Pathologist Signature 12/11/2023 11:27 AM CDT [facility] Tissue 12/02/2023 7:14 PM CDT 12/02/2023 7:14 PM CDT us Ariane Gomez APRN [facility] AP BIOMARKERS F inal Result [facility] Cancer [address] [address], [place] * NM Dosing Appt (11/23/2023 6:02 PM CDT) Anatomical Region Laterality Modality Nuclear Medicine 11/23/2023 8:27 PM CDT Impressions 11/23/2023 8:29 PM CDT Radiocolloid injection for intraoperative sentinel lymph node localization. Narrative 11/23/2023 8:29 PM CDT FULL RESULT: Examination: Dosing Appointment, 11/23/2023 6:02 PM Clinical History: Breast cancer Indication: Lymphatic mapping for intraoperative sentinel lymph node localization. Comparison: None. Technique: Filtered technetium-99m sulfur colloid, 0.55 mCi, was dispensed to the OR nurse for injection into the left breast by Dr. House. Findings: No imaging was acquired. Procedure Note Lina Muhammad MD - 11/23/2023 FULL RESULT: Examination: Dosing Appointment, 11/23/2023 6:02 PM Clinical History: Breast cancer Indication: Lymphatic mapping for intraoperative sentinel lymph nodelocalization. Comparison: None. Technique: Filtered technetium-99m sulfur colloid, 0.55 mCi, was dispensedto the OR nurse for injection into the left breast by Dr. House. Findings: No imaging was acquired. IMPRESSION: Radiocolloid injection for intraoperative sentinel lymph nodelocalization. us Genet Nuno APRN IMG NM ORDERABLES Final Result * Breast Specimen Radiograph (Left) (11/23/2023 8:25 AM CDT) Anatomical Region Laterality Modality Breast N/A Digital Radiogra phy 11/23/2023 11:5 1 AM CDT Impressions 11/23/2023 11:51 AM CDT As discussed above. Radiography confirms removal of 1 biopsy clip. Narrative 11/23/2023 11:51 AM CDT Examination: Specimen Radiograph Left 11/23/2023. Indication: Breast Cancer Technique: Left breast specimen submitted for review. There is a total of 5 radiographic images. The en bloc specimen is imaged on the first radiographic image. Findings: Findings were electronically annotated and discussed with the pathologist Dr. Mchugh at the time of this dictation. Procedure Note Josh Connelly MD - 11/23/2023 Examination: Specimen Radiograph Left 11/23/2023. Indication: Breast Cancer Technique: Left breast specimen submitted for review. There is a total of5 radiographic images. The en bloc specimen is imaged on the firstradiographic image. Findings: Findings were electronically annotated and discussed with the pathologist Dr. Mchugh at the time of this dictation. IMPRESSION: As discussed above. Radiography confirms removal of 1 biopsy clip. Genet Nuno APRN IMG MAMMOGRAPHY ORDERABL ES Edited Result - Final * Scan Genetic Testing Results (11/23/2023) Only the most recent of2 resultswithin the time period is included. Narrative 11/23/2023 Ordered by an unspecified provider. us Provider Not In System SCANNED ORDERS Final Res ult * NM Lymphoscintigraphy Breast (11/20/2023 1:40 PM CDT) Anatomical Region Laterality Modality Abdomen Nuclear Medicine 11/20/2023 2:03 PM CDT Impressions 11/20/2023 2:04 PM CDT Left breast lymphoscintigraphy injection with localization of a left axillary node as the sentinel node. ACTIONABLE ITEMS/RECOMMENDATIONS*: None. *An Actionable Finding is a finding that may be unrelated to the original reason for imaging but potentially actionable, meaning further investigation may be necessary. The Actionable Findings Vigilance Unit (AFVU) assists medical providers with responding to additional radiologic findings that are unexpected and potentially actionable. Narrative 11/20/2023 2:04 PM CDT FULL RESULT: Examination: Breast Lymphoscintigraphy, 11/20/2023 1:40 PM Clinical History: Breast cancer Indication: Lymphatic mapping for sentinel lymph node localization. Comparison: None. Technique: The patient was injected with 0.55 mCi of Technetium-99m sulfur colloid in the left breast subareolar region. Multiple delayed images of the thorax were obtained in various projections at 1.5 hours postinjection. Findings: Focal intense radiotracer is seen at the injection site on the LEFT breast. There is focus of radiotracer uptake in the left axilla, correlating to a left axillary node. Procedure Note Ariel Mike MD - 11/20/2023 FULL RESULT: Examination: Breast Lymphoscintigraphy, 11/20/2023 1:40 PM Clinical History: Breast cancer Indication: Lymphatic mapping for sentinel lymph node localization. Comparison: None. Technique: The patient was injected with 0.55 mCi of Technetium-99m sulfurcolloid in the left breast subareolar region. Multiple delayed images ofthe thorax were obtained in various projections at 1.5 hourspostinjection. Findings: Focal intense radiotracer is seen at the injection site on the LEFTbreast. There is focus of radiotracer uptake in the left axilla,correlating to a left axillary node. IMPRESSION: Left breast lymphoscintigraphy injection with localization of a leftaxillary node as the sentinel node. ACTIONABLE ITEMS/RECOMMENDATIONS*: None. *An Actionable Finding is a finding that may be unrelated to the originalreason for imaging but potentially actionable, meaning furtherinvestigation may be necessary. The Actionable Findings Vigilance Unit(AFVU) assists medical providers with responding to additional radiologicfindings that are unexpected and potentially actionable. us Genet Nuno APRN IMG NM ORDERABLES Final Result * YFN (11/13/2023 9:08 AM CDT) MELANIEPrakashCARLITA 11/13/2023 1:13 PM CDT [facility] [place] Comment:Specimen for Genetic testing was obtained, processed and sent out to the Performing Reference Laboratory. Refer to the performing lab for results. Blood Peripheral blood specimen / Unknown Venipuncture / Unknown 11/13/2023 9:08 AM CDT 11/13/2023 9:21 AM CDT us Melinda Cintron APRN LAB BLOOD ORDERABLES Final Result [facility] [place] Unless otherwise noted, all lab tests performed by: Division of Pathology and Laboratory Medicine [address] [place] [id number] * (ABNORMAL) Comprehensive Metabolic Panel (10/13/2023 4:05 PM CDT) Bilirubin Total 0.4 0.0 - 1.2 mg/dL 10/13/2023 5:00 PM CDT [facility] [place] Comment:Indocyanine Green (I CG) may cause falsely elevated bilirubin results. Total and direct bilirubin must not be measured from samples containing indocyanine green. False elevation of total bilirubin can be seen in patients with IgG concentrations above 28 g/L. eGFR 79 >=60 mL/min/1. 73 sq. m 10/13/2023 5:00 PM CDT [facility] [place] Comment: The eGFRcr is calculated with the 2020 CKD-EPI creatinine equation using creatinine, patient's age, and sex for adults 18 years of age and older. Other factors, especially muscle mass, may affect accuracy and need to be considered. According to the Kidney Disease: Improving Global Outcomes (KDIGO) CKD Work Group 2012 Clinical Practice Guideline, chronic kidney disease (CKD) is defined as the abnormalities of kidney structure or function, present for more than 3 months, with implications for health. CKD should be classified by cause, GFR category, and albuminuria category. KDIGO guidelines provide the following GFR categories. Stage / Description / GFR mL/min/1.73 m2: G1* / Normal or high / >= 90 G2* / Mildly decreased / 60-89 G3a / Mildly to moderately decreased / 45-59 G3b / Moderately to severely decreased / 30-44 G4 / Severely decreased / 15-29 G5 / Kidney failure / <15 *In the absence of evidence of kidney damage, neither G1 nor G2 fulfill criteria for CKD. Tot Protein 7.8 6.4 - 8.3 gm/dL 10/13/2023 5:00 PM CDT [facility] [place] Calcium Level Total 10.5(H) 8.2 - 10.2 mg/dL 10/13/2023 5:00 PM CDT [facility] [place] Alkaline Phosphatase 81 35 - 104 U/L 10/13/2023 5:00 PM CDT [facility] [place] Albumin Level 5.0 3.5 - 5.2 gm/dL 10/13/2023 5:00 PM CDT [facility] AST 30 <=32 U/L 10/13/2023 5:00 PM T [facility] [place] Comment:Specimen is hemolyze d. Results may be falsely elevated. Repeat test if needed. ALT 31 <=33 U/L 10/13/2023 5:00 PM CDT [facility] [place] Sodium Level 138 136 - 145 mmol/L 10/13/2023 5:00 PM CDT [facility] [place] Potassium Level 4.0 3.4 - 4.5 mmol/L 10/13/2023 5:00 PM CDT [facility] [place] Chloride 98 98 - 107 mmol/L 10/13/2023 5:00 PM CDT [facility] [place] CO2 29 22 - 29 mmol/L 10/13/2023 5:00 PM CDT [facility] [place] Anion Gap 11 4 - 14 mmol/L 10/13/2023 5:00 PM CDT [facility] [place] Creatinine 0.80 0.51 - 0.95 mg/dL 10/13/2023 5:00 PM CDT [facility] [place] BUN 17 6 - 23 mg/dL 10/13/2023 5:00 PM T [facility] [place] Glucose Level 133(H) 70 - 99 mg/dL 10/13/2023 5:00 PM T [facility] [place] Comment: Effective 01/02/16, the glucose reference intervals have been updated based on [employer] guidelines (Standards of Medical Care in Diabetes 2016. Diabetes Care 2016; 39: S13-S22). Fasting blood glucose: Normal: 70-99 mg/dL Impaired fasting glucose (increased risk for diabetes or pre-diabetes): 100-125 mg/dL Diabetes mellitus: >/=126 mg/dL Random blood glucose: Normal: 70-199 mg/dL Note: Random glucose >100 mg/dL is associated with increased risk for diabetes. Blood Peripheral blood specimen / Unknown Venipuncture / Unknown 10/13/2023 4:05 PM CDT 10/13/2023 4:07 PM CDT Colette Coburn APRN LAB BLOOD ORDERABLES Final Result [facility] [place] Unless otherwise noted, all lab tests performed by: Division of Pathology and Laboratory Medicine [facility] [place] [address] * aPTT (10/13/2023 4:05 PM CDT) Activated PTT 26.1 24.1 - 35.5 second(s) 10/13/2023 4:40 PM CDT [facility] Blood Peripheral blood specimen / Unknown Venipuncture / Unknown 10/13/2023 4:05 PM CDT 10/13/2023 4:07 PM CDT Colette Coburn APRN LAB BLOOD ORDERABLES Final Result [facility] [address] [facility] [place] [address] * Prothrombin Time with INR (10/13/2023 4:05 PM CDT) Prothrombin Time 12.5 11.9 - 14.5 second(s) 10/13/2023 4:40 PM CDT [facility] International Normalization Ratio 0.97 0.87 - 1.12 10/13/2023 4:40 PM T [facility] Blood Peripheral blood specimen / Unknown Venipuncture / Unknown 10/13/2023 4:05 PM CDT 10/13/2023 4:07 PM CDT Colette Coburn APRN LAB BLOOD ORDERABLES Final Result AMAIR[facility] Leong [facility] [place] [address] * TSH (10/13/2023 4:05 PM CDT) Thyroid Stimulating Hormone 2.35 0.27 - 4.20 mcunit/mL 10/13/2023 5:00 PM CDT [facility] [place] Blood Peripheral blood specimen / Unknown Venipuncture / Unknown 10/13/2023 4:05 PM CDT 10/13/2023 4:07 PM CDT Colette Coburn APRN LAB BLOOD ORDERABLES Final Result Performing Organization Address City/[facility]/ZIP Co de Phone Number [facility] Unless otherwise noted, all lab tests performed by: Division of Pathology and Laboratory Medicine [address] [place] [id number] * Free T4 (10/13/2023 4:05 PM CDT) T4 (Thyroxine) Free 1.32 0.93 - 1.70 ng/dL 10/13/2023 5:00 PM CDT [facility] [place] Blood Peripheral blood specimen / Unknown Venipuncture / Unknown 10/13/2023 4:05 PM CDT 10/13/2023 4:07 PM CDT Colette Coburn APRN LAB BLOOD ORDERABLES Final Result [facility] [place] Unless otherwise noted, all lab tests performed by: Division of Pathology and Laboratory Medicine [address] [place] [phone] * X-ray Chest 2 Views (10/13/2023 4:00 PM CDT) Anatomical Region Laterality Modality Chest Digital Radiogra phy 10/13/2023 4:02 PM CDT Impressions 10/13/2023 4:03 PM CDT No evidence of intrathoracic metastatic disease or acute cardiopulmonary process. ACTIONABLE ITEMS/RECOMMENDATIONS*: None. *An Actionable Finding is a finding that may be unrelated to the original reason for imaging but potentially actionable, meaning further investigation may be necessary. The Actionable Findings Vigilance Unit (AFVU) assists medical providers with responding to additional radiologic findings that are unexpected and potentially actionable. Narrative 10/13/2023 4:03 PM CDT FULL RESULT: Examination: XR CHEST 2 VW on 10/13/2023 4:00 PM. 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 Lungs/Pleura: The lungs are adequately inflated without acute airspace consolidation or radiographically apparent pulmonary nodule. No pleural effusion or pneumothorax. Mediastinum: The heart size and aortic contour are within normal limits. No mediastinal or hilar lymphadenopathy. Other: No destructive bone lesion or acute fracture is appreciated in the thorax. Procedure Note Karly Bagley MD - 10/13/2023 FULL RESULT: Examination: XR CHEST 2 VW on 10/13/2023 4:00 PM. Clinical History: Infiltrating ductal carcinoma of upper outer quadrant ofleft female breast Estrogen receptor positive status (ER+) Indication: Breast cancer, preoperative Comparison: None available Technique: Posteroanterior, lateral and dual-energy radiographs of thechest Findings: Support Apparatus: None. Lungs/Pleura: The lungs are adequately inflated without acute airspaceconsolidation or radiographically apparent pulmonary nodule. No pleuraleffusion or pneumothorax. Mediastinum: The heart size and aortic contour are within normal limits.No mediastinal or hilar lymphadenopathy. Other: No destructive bone lesion or acute fracture is appreciated in thethorax. IMPRESSION: No evidence of intrathoracic metastatic disease or acute cardiopulmonaryprocess. ACTIONABLE ITEMS/RECOMMENDATIONS*: None. *An Actionable Finding is a finding that may be unrelated to the originalreason for imaging but potentially actionable, meaning furtherinvestigation may be necessary. The Actionable Findings Vigilance Unit(AFVU) assists medical providers with responding to additional radiologicfindings that are unexpected and potentially actionable. us Madalyneleanor Gotti Irish KAMINSKI IMG DIAGNOSTIC IMAGING ORDGabriel SINGH Final Result * EKG, 12-Lead (Scheduled) (10/13/2023) us Colette Coburn APRN ECG ORDERABLES Final Resul t [facility] IECG * US Chest for Breast Ultrasound (Add-on Only) (10/12/2023 2:18 PM CDT) Anatomical Region Laterality Modality Chest Bilateral Ultrasound 10/12/2023 2:19 PM CDT Impressions 10/12/2023 2:31 PM CDT 1. Unifocal left breast malignancy as above. 2. No suspicious left adenopathy. ACR BI-RADS Category: 6. Known malignancy. Recommend appropriate evaluation and treatment of the known malignancy. I personally reviewed these image(s) along with the resident's/fellow's interpretations, certify that if a procedure was performed I was physically present, and agree with the final report. Narrative 10/12/2023 2:31 PM CDT FULL RESULT: Examination: US BREAST COMPLETE LEFT, US CHEST 10/12/2023 2:18 PM Clinical History: 72-year-old female with left breast malignancy presenting for staging. Indication: Breast cancer Comparison: Outside ultrasound 08/31/2023, 09/08/2023. Mammogram 10/12/2023 Technique: Real-time sonographic imaging of the left breast (including all 4 quadrants and retroareolar region) was performed. Imaging was performed of the axilla (levels I, II, and III). Ultrasound imaging of the chest/mediastinum was performed to evaluate the internal mammary lymph nodes. Images were obtained in multiple scanning planes. Findings: Left breast: The biopsy-proven malignancy in the 1 to 2 o'clock position, 5 cm from the nipple, presents as an irregular hypoechoic mass containing an in situ biopsy clip measuring 2.7 x 1.7 x 1.0 cm. There is no skin, pectoralis or nipple involvement. No additional suspicious findings by ultrasound. Left regional fabiola basins: There are no suspicious axillary (level I through III) or internal mammary lymph nodes. Procedure Note Geoffrey Catalan MD - 10/12/2023 FULL RESULT: Examination: US BREAST COMPLETE LEFT, US CHEST 10/12/2023 2:18 PM Clinical History: 72-year-old female with left breast malignancypresenting for staging. Indication: Breast cancer Comparison: Outside ultrasound 08/31/2023, 09/08/2023. Rzmflpwbq00/06/2024 Technique: Real-time sonographic imaging of the left breast (including all4 quadrants and retroareolar region) was performed. Imaging was performedof the axilla (levels I, II, and III). Ultrasound imaging of thechest/mediastinum was performed to evaluate the internal mammary lymphnodes. Images were obtained in multiple scanning planes. Findings: Left breast: The biopsy-proven malignancy in the 1 to 2 o'clock position, 5 cm from thenipple, presents as an irregular hypoechoic mass containing an in situbiopsy clip measuring 2.7 x 1.7 x 1.0 cm. There is no skin, pectoralis ornipple involvement. No additional suspicious findings by ultrasound. Left regional fabiola basins: There are no suspicious axillary (level I through III) or internal mammarylymph nodes. IMPRESSION: 1. Unifocal left breast malignancy as above. 2. No suspicious left adenopathy. ACR BI-RADS Category: 6. Known malignancy. Recommend appropriate evaluation and treatment of the known malignancy. I personally reviewed these image(s) along with the resident's/fellow'sinterpretations, certify that if a procedure was performed I wasphysically present, and agree with the final report. us Colette Coburn APRN IMG US ORDERABLES Final Res ult * US Breast Complete Left (10/12/2023 2:18 PM CDT) Anatomical Region Laterality Modality Breast Left Ultrasound 10/12/2023 2:19 PM CDT Impressions 10/12/2023 2:31 PM CDT 1. Unifocal left breast malignancy as above. 2. No suspicious left adenopathy. ACR BI-RADS Category: 6. Known malignancy. Recommend appropriate evaluation and treatment of the known malignancy. I personally reviewed these image(s) along with the resident's/fellow's interpretations, certify that if a procedure was performed I was physically present, and agree with the final report. Narrative 10/12/2023 2:31 PM CDT FULL RESULT: Examination: US BREAST COMPLETE LEFT, US CHEST 10/12/2023 2:18 PM Clinical History: 72-year-old female with left breast malignancy presenting for staging. Indication: Breast cancer Comparison: Outside ultrasound 08/31/2023, 09/08/2023. Mammogram 10/12/2023 Technique: Real-time sonographic imaging of the left breast (including all 4 quadrants and retroareolar region) was performed. Imaging was performed of the axilla (levels I, II, and III). Ultrasound imaging of the chest/mediastinum was performed to evaluate the internal mammary lymph nodes. Images were obtained in multiple scanning planes. Findings: Left breast: The biopsy-proven malignancy in the 1 to 2 o'clock position, 5 cm from the nipple, presents as an irregular hypoechoic mass containing an in situ biopsy clip measuring 2.7 x 1.7 x 1.0 cm. There is no skin, pectoralis or nipple involvement. No additional suspicious findings by ultrasound. Left regional fabiola basins: There are no suspicious axillary (level I through III) or internal mammary lymph nodes. Procedure Note Geoffrey Catalan MD - 10/12/2023 FULL RESULT: Examination: US BREAST COMPLETE LEFT, US CHEST 10/12/2023 2:18 PM Clinical History: 72-year-old female with left breast malignancypresenting for staging. Indication: Breast cancer Comparison: Outside ultrasound 08/31/2023, 09/08/2023. [id number]/06/2024 Technique: Real-time sonographic imaging of the left breast (including all4 quadrants and retroareolar region) was performed. Imaging was performedof the axilla (levels I, II, and III). Ultrasound imaging of thechest/mediastinum was performed to evaluate the internal mammary lymphnodes. Images were obtained in multiple scanning planes. Findings: Left breast: The biopsy-proven malignancy in the 1 to 2 o'clock position, 5 cm from thenipple, presents as an irregular hypoechoic mass containing an in situbiopsy clip measuring 2.7 x 1.7 x 1.0 cm. There is no skin, pectoralis ornipple involvement. No additional suspicious findings by ultrasound. Left regional fabiola basins: There are no suspicious axillary (level I through III) or internal mammarylymph nodes. IMPRESSION: 1. Unifocal left breast malignancy as above. 2. No suspicious left adenopathy. ACR BI-RADS Category: 6. Known malignancy. Recommend appropriate evaluation and treatment of the known malignancy. I personally reviewed these image(s) along with the resident's/fellow'sinterpretations, certify that if a procedure was performed I wasphysically present, and agree with the final report. us Colette Coburn APRN IMG US ORDERABLES Final Res ult * (ABNORMAL) Mammography Digital Diagnostic Bilateral with Aashish (10/12/2023 12:58 PM CDT) Anatomical Region Laterality Modality Breast Bilateral Mammography 10/12/2023 1:02 PM CDT Impressions 10/12/2023 1:02 PM CDT 1: Area of architectural distortion, palpable finding and post biopsy clip in the left breast upper outer quadrant at 2 o'clock located 5 centimeters from the nipple are known biopsy-proven malignancy. Ultrasound is recommended for staging. 2: Calcifications in both breasts are benign. I personally reviewed these image(s) along with the resident's/fellow's interpretations, certify that if a procedure was performed I was physically present, and agree with the final report. BI-RADS Category 6: Known Biopsy Proven Malignancy Narrative 10/12/2023 1:02 PM CDT CLINICAL INDICATION: Patient is a 72 year old female and is seen for breast cancer MAMMO DIGITAL DIAGNOSTIC BILATERAL W AASHISH Digital Mammogram evaluated with Computer Aided Detection (CAD). COMPARISON: The present examination has been compared to prior imaging studies performed at an outside location on 07/26/2019, 07/31/2020, 07/31/2021, 08/26/2022 and 08/31/2023. FINDINGS: The breasts are heterogeneously dense, which may obscure small masses. 1: There is an area of architectural distortion, a palpable finding and a post biopsy clip in the left breast upper outer quadrant at 2 o'clock located 5 centimeters from the nipple. Patient underwent biopsy at [facility] demonstrating IDC/DCIS. The associated mass is better evaluated sonographically. 2: There are benign appearing calcifications with scattered distribution in both breasts. Tomosynthesis performed in CC and MLO projections. Procedure Note Geoffrey Catalan MD - 10/12/2023 CLINICAL INDICATION: Patient is a 72 year old female and is seen for breast cancer MAMMO DIGITAL DIAGNOSTIC BILATERAL W AASHISH Digital Mammogram evaluated with Computer Aided Detection (CAD). COMPARISON: The present examination has been compared to prior imaging studiesperformed at an outside location on 07/26/2019, 07/31/2020, 07/31/2021, 08/26/2022nd 08/31/2023. FINDINGS: The breasts are heterogeneously dense, which may obscure small masses. 1: There is an area of architectural distortion, a palpable finding and apost biopsy clip in the left breast upper outer quadrant at 2 o'clock located5 centimeters from the nipple. [facility]. The associated mass is better evaluated sonographically. 2: There are benign appearing calcifications with scattered distributionin both breasts. Tomosynthesis performed in CC and MLO projections. IMPRESSION: 1: Area of architectural distortion, palpable finding and post biopsyclip in the left breast upper outer quadrant at 2 o'clock located 5 centimetersfrom the nipple are known biopsy-proven malignancy. Ultrasound is recommended forstaging. 2: Calcifications in both breasts are benign. I personally reviewed these image(s) along with the resident's/fellow's interpretations, certify that if a procedure was performed I wasphysically present, and agree with the final report. BI-RADS Category 6: Known Biopsy Proven Malignancy us Colette Coburn APRN IMG MAMMOGRAPHY ORDERABLES Final Result * [facility] US Breast Biopsy (09/08/2023 12:36 PM CDT) Narrative [facility] - 10/09/2023 12:36 PM CDT Study acquired at another institution. For comparison only. No [facility] originated interpretation requested or available. us Lane Leonard MD IMG OUTSIDE IMAGE ORDERABLES F inal Result [facility] * Pathology Outside Interpretation (09/08/2023) Materials Received Accession#, Stained, Block, Unstained Collected Received A. 24:[id number], 4 SS, 1 BLOCKS, 0 USS 09/08/2023 10/06/2023 10/06/2023 1:27 PM CDT [facility] Diagnosis Outside (24:[id number], 4 SS, 1 BLOCKS, 0 USS, collected on 09/08/2023): Left breast, ultrasound guided core needle biopsy (L1, L2, and IHCx2): INVASIVE DUCTAL CARCINOMA, LOW NUCLEAR GRADE, GUILLERMO HISTOLOGIC GRADE 1. Invasive carcinoma involves multiple cores and measures 7 mm in greatest dimension in this core needle biopsy specimen. 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 Submitted IHC: ER POSITIVE (99%, strong intensity) MT POSITIVE (99%, strong intensity) HER 2 by IHC EQUIVOCAL (score 2+) (reported, slide not received) [id number] by FISH (ratio, 1.0 and average HER2 signals per nucleus, 2.0) (reported) Ki-67 LOW (5%) (reported, slide not received) 10/06/2023 1:27 PM CDT [facility] Biomarker Block(s) Primary Tumor block: outside block 10/06/2023 1:27 PM CDT [facility] Disclaimer "Some tests reported here may have been developed and performance characteristics determined by [facility]. These tests have not been specifically cleared or approved by the U.S. Food and Drug Administration. If applicable, controls were reviewed and showed appropriate reactivity." 10/06/2023 1:27 PM CDT [facility] Tissue 09/08/2023 10/06/2023 9:3 4 AM CDT us Aurda Purvis MD LAB PATHOLOGY ORDERABLES Final Result [facility] [address] [place] [address], [place] * [facility] Mammo (08/31/2023 12:36 PM CDT) Narrative [facility] - 10/09/2023 12:36 PM CDT Study acquired at another institution. For comparison only. No [facility] originated interpretation requested or available. us Lane Leonard MD IMG OUTSIDE IMAGE ORDERABLES F inal Result Performing Organization Address City/[facility] Co de Phone Number [facility] * [facility] US Breast (08/31/2023 12:36 PM CDT) Only the most recent of2 resultswithin the time period is included. Narrative [facility] - 10/09/2023 12:36 PM CDT Study acquired at another institution. For comparison only. No MD Siu originated interpretation requested or available. us Lane Leonard MD IMG OUTSIDE IMAGE ORDERABLES F inal Result Performing Organization Address City/[facility] Co de Phone Number [facility] after 06/06/2023 Insurance MEDICARE PART A AND B [facility] SENIOR SUPPLEMENT-SECONDARY ONLY MEDICARE PART A AND B [facility] SENIOR SUPPLEMENT-SECONDARY ONLY Advance Directives * Full Code (Latest Code Status on File) Date Activated Date Inactivated Comments 11/23/2023 3:54 PM 11/24/2023 3:54 PM Care Teams Hadoop Administrator Relationship Specialty Start Date End Date Kaley Gardiner MD [address] [place] [address] [email or web address] PCP - General Breast Surgery 09/23/23 Hollie Juarez RN [address] [place] [id number] [email or web address] Intake Nurse Navigator Nursing 09/22/23 10/12/23 Danielle Vinson RN [address] [place] [id number] [email or web address] Treatment Nurse Navigator Nursing 10/13/23 Tracey Mireles MD [address] [place] [phone] [email or web address] Consulting Physician Radiation Oncology 10/23/23 Chris Pulido MD [address] [place] [phone] [email or web address] Consulting Physician Plastic and Reconstructive Surgery 11/18/23 Yeison Rucker MD [address] [place] [phone] [email or web address] Consulting Physician Gynecologic Medical Oncology 05/10/24
[2024-06-05] MEDS ORDERED: NA CHLORIDE 0.9% 1,000 ML ONE (10:23)
[2024-06-05] MEDS ORDERED: ONDANSETRON 4 MG/2 ML VIAL ONE (10:33)
[2024-06-05 10:41] LABS: Absolute Eosinophils 0.2 K/uL (0-0.5); Absolute Lymphocytes (CBC) 1.4 K/uL (0.7-4.9); Absolute Monocytes 0.7 K/uL (0.1-1.3); Absolute Neutrophil 1.8 K/uL (1.8-8.0); Basophils % 0.2 % (0-1.3); Eosinophils % 3.9 % (0-4.4); Hematocrit 44.4 % (36.0-45.0); Hemoglobin 14.6 g/dL (12.0-15.0); Lymphocytes % 34.2 % (15.3-44.8); MCH 31.6 pg (27.0-35.0); MCV 95.7 fL (80-100); MPV 9.2 fL (7.6-11.3); Monocytes % 17.7 % (3.3-12.3); Platelets 166 thou/uL (152-406); RBC Red Blood Cell Count 4.64 M/uL (3.86-4.86); Red Cell Distribution Width 13.1 % (12.1-15.2)
[2024-06-05 10:54] LABS: Albumin 3.7 g/dL (3.4-5.0); Albumin/Globulin Ratio 0.9 (1.1-1.8); Anion Gap 9.6 mEq/L (5.0-15.0); Bilirubin Total 0.5 mg/dL (0.2-1.0); Globulin 3.9 g/dL (2.3-3.5); Potassium 3.6 mEq/L (3.5-5.1); Protein, Total 7.6 g/dL (6.4-8.2)
--- NOTE | 2024-06-05 11:33 | RAD REPORT ---
EXAMINATION: CT ABDOMEN AND PELVIS WITH CONTRAST CLINICAL INDICATION: Female, 73 years old.abd pain, diarrhea TECHNIQUE: CT abdomen and pelvis was performed, after the administration of IV contrast, as per [facility]. Axial, sagittal and coronal reconstructions were obtained. One or more of the following dose reduction techniques were used: Automated exposure control, adjustment of the mA and/o r kV according to patient size, and/or iterative reconstruction. Unless otherwise specified, incidental findings do not require dedicated imaging follow-up. [id number]. COMPARISON: No prior exam. FINDINGS: LOWER CHEST: No acute process identified.No significant pericardial effusion. Small hiatal hernia. Le ft breast prosthesis. UPPER GI: No significant abnormality. LIVER: Hepatic steatosis, but otherwise unremarkable. GALLBLADDER/BILE DUCTS: No biliary ductal dilatation.? PANCREAS: No mass, ductal dilation, or jay-pancreatic fluid. SPLEEN: Unremarkable. ADRENALS: No adrenal masses. KIDNEYS AND URETERS: No hydronephrosis.Low density and/or too small to characterize renal lesions whi ch are statistically benign. ABDOMINAL AORTA AND OTHER VESSELS: Mild atherosclerotic changes. PERITONEUM: No abnormal free fluid. No free air. LYMPH NODES: No pathologic lymphadenopathy. ABDOMINAL WALL: Unremarkable SMALL BOWEL/COLON: Nonspecific fluid present within the small bowel and colon. No bowel obstruction.N ormal appendix. URINARY BLADDER: Underdistended but grossly unremarkable. REPRODUCTIVE ORGANS: Uterus surgically absent. No adnexal abnormality. MUSCULOSKELETAL: Multilevel degenerative changes are present in the spine. ADDITIONAL FINDINGS: None. IMPRESSION: No acute or significant abnormalities seen in the abdomen or pelvis. Nonspecific fluid within the sma ll bowel and colon could represent a gastroenteritis. Normal appendix
[2024-06-05] MEDS ORDERED: LOPERAMIDE HCL 2 MG CAPSULE ONE (11:44)
[2024-06-05 11:51] LABS: Specific Gravity 1.023 (1.005-1.030); Transitional Epithelial <5 /HPF (None Seen); Urine Bacteria 20-50 /HPF (<20); Urine Bilirubin NEGATIVE (Negative); Urine Blood Trace (Negative); Urine Clarity Turbid (Clear); Urine Color Colorless (Yellow); Urine Culture Reflex Order NOT NEEDED; Urine Glucose NEGATIVE (Negative); Urine Ketones NEGATIVE (Negative); Urine Microscopic Reflex YN ORDER UMIC; Urine Nitrite NEGATIVE (Negative); Urine Protein NEGATIVE (Negative); Urine RBC <5 /HPF (None Seen); Urine Urobilinogen Normal (Normal); Urine WBC <5 /HPF (<5); Urine pH 5.5 (5.0-7.0)
--- NOTE | 2024-06-05 12:05 | ER ---
Nurse's Notes [facility] Name: Beronica Carter Age: 73 yrs Sex: Female : 1950 Arrival Date: 06/05/2024 Time: 09:19 Bed 20 Private MD: Diagnosis: Noninfective gastroenteritis and colitis, unspecified;UTI/ Urinary tract infection, site not specified Presentation: 06/05 10:08 Coronavirus screen: Client denies travel out of the [place] in the last 14 days. Ebola tm6 Screen: Patient negative for fever greater than or equal to 101.5 degrees Fahrenheit, and additional compatible Ebola Virus Disease symptoms Patient denies exposure to infectious person. Patient denies travel to an Ebola-affected area in the 21 days before illness onset. No symptoms or risks identified at this time. Initial Sepsis Screen: Does the patient meet any 2 criteria? No. Patient's initial sepsis screen is negative. Does the patient have a suspected source of infection? No. Patient's initial sepsis screen is negative. Risk Assessment: Do you want to hurt yourself or someone else? Patient reports no desire to harm self or others. 10:08 Method Of Arrival: Ambulatory tm6 10:08 Acuity: DIONI 3 tm6 10:09 Chief complaint: Patient states: night I had food poisoning, it was so bad I tm6 almost passed out. N/V/D. Last night I still had diarrhea and I have pain on the right side of my abdomen. No more n/v. Onset of symptoms was June 02, 2024. Triage Assessment: 10:09 General: Appears uncomfortable, Behavior is calm, cooperative. Pain: Complains of pain tm6 in right upper quadrant and right lower quadrant Pain currently is 4 out of 10 on a pain scale. EENT: No signs and/or symptoms were reported regarding the EENT system. Neuro: Level of Consciousness is awake, alert, obeys commands, Oriented to person, place, time, situation. Cardiovascular: Patient's skin is warm and dry. Respiratory: Airway is patent Respiratory effort is even, unlabored, Respiratory pattern is regular, symmetrical. GI: Abdomen is flat, non-distended, Reports lower abdominal pain, upper abdominal pain, diarrhea. : No signs and/or symptoms were reported regarding the genitourinary system. Derm: No signs and/or symptoms reported regarding the dermatologic system. Musculoskeletal: No signs and/or symptoms reported regarding the musculoskeletal system. Historical: - Allergies: 10:07 PENICILLINS; tm6 - PMHx: 10:07 Hypertensive disorder; Anxiety; Gastroesophageal reflux disease; tm6 - PSHx: 10:07 mastectomy; Total abdominal hysterectomy; tm6 - Immunization history:: Flu vaccine is up to date. - Infectious Disease History:: Denies. - Social history:: Smoking status: Patient denies any tobacco usage or history of. Screenin:19 [facility] ED Fall Risk Assessment (Adult) History of falling in the last 3 months, ll1 including since admission No falls in past 3 months (0 pts) Confusion or Disorientation No (0 pts) Intoxicated or Sedated No (0 pts) Impaired Gait Yes (1 pt) Mobility Assist Device Used Yes (1 pt) Altered Elimination No (0 pt) Score/Fall Risk Level 0 - 2 = Low Risk Maintained a safe environment, Hourly rounding (assess needs \T\ fall precautionary measures) done. Abuse screen: Denies threats or abuse. Nutritional screening: No deficits noted. Tuberculosis screening: No symptoms or risk factors identified. Assessment: 10:30 General: Appears uncomfortable, ill, Behavior is calm, cooperative, appropriate for ll1 age. Pain: Denies pain. Neuro: Reports weakness. GI: Reports cramping, diarrhea, nausea, vomiting. 10:45 Reassessment: Patient and/or family updated on plan of care and expected duration. Pain ll1 level reassessed. 11:45 Reassessment: No changes from previously documented assessment. Patient and/or family ll1 updated on plan of care and expected duration. Pain level reassessed. Patient is alert, oriented x 3, equal unlabored respirations, skin warm/dry/pink. 12:20 Reassessment: No changes from previously documented assessment. Patient and/or family ll1 updated on plan of care and expected duration. Pain level reassessed. Patient is alert, oriented x 3, equal unlabored respirations, skin warm/dry/pink. Patient states feeling better. Patient states symptoms have improved. Vital Signs: 10:06 BP 144 / 87; Pulse 67; Resp 17; Temp 98.1(O); Pulse Ox 98% on R/A; MAP 105 mmHg; Weight tm6 62.6 kg; Height 5 ft. 3 in. ; Pain 4/10; 12:20 BP 141 / 81; Pulse 61; Resp 16; Pulse Ox 98% ; Pain 0/10; ll1 10:06 Body Mass Index 24.45 (62.60 kg, 160.02 cm) tm6 10:06 Pain Scale: Adult tm6 12:20 Pain Scale: Adult ll1 ED Course: 09:22 Patient arrived in ED. im 09:31 Nelida Fay PA-C is PHCP. sb4 09:31 Sean Estrella MD is Attending Physician. sb4 10:08 Arm band placed on right wrist. tm6 10:09 Triage completed. tm6 10:10 Provided Education on: ER procedures and process. ll1 10:23 Best Amado, HENRI is Primary Nurse. ll1 10:30 No provider procedures requiring assistance completed. Initial lab(s) drawn, by wv, ll1 sent to lab. Inserted saline lock: 22 gauge in right antecubital area, using aseptic technique. Blood collected. Flushed with 10 mL NS. 11:25 CT Abd/Pelvis - IV Contrast Only In Process Unspecified. EDMS 12:19 IV discontinued, intact, bleeding controlled, No redness/swelling at site. Pressure ll1 dressing applied. 12:21 Patient has correct armband on for positive identification. Bed in low position. ll1 Administered Medications: 10:38 Drug: Ondansetron IVP 4 mg IVP once; over 2 minutes Route: IVP; Site: right antecubital;ll1 11:46 Follow up: Response: No adverse reaction; Nausea is decreased; RASS: Alert and Calm (0) ll1 10:45 Drug: NS 0.9% IV 1000 ml IV at 1 bolus Per protocol; to be given as a bolus over 60 ll1 minutes Route: IV; Rate: 1 bolus; Site: right antecubital; 12:19 Follow up: Response: No adverse reaction; IV Status: Completed infusion; IV Intake: ll1 1000ml 11:46 Drug: Loperamide PO 4 mg PO once Route: PO; ll1 12:20 Follow up: Response: No adverse reaction ll1 Medication: 12:21 VIS not applicable for this client. ll1 Intake: 12:19 IV: 1000ml; Total: 1000ml. ll1 Outcome: 12:05 Discharge ordered by . sb4 12:20 Discharged to home ambulatory, ll1 12:20 Condition: stable 12:20 Discharge instructions given to patient, Instructed on discharge instructions, follow up and referral plans. medication usage, Demonstrated understanding of instructions, follow-up care, medications, Prescriptions given X 3, 12:21 Patient left the ED. ll1 Signatures: Dispatcher [employer] Best Rosen RN RN ll1 Nelida Fay PA-C PAJl sb4 Tory Hyatt Tawney, RN RN tm6 Corrections: (The following items were deleted from the chart) 12:19 11:30 Reassessment: No changes from previously documented assessment. Patient and/or ll1 family updated on plan of care and expected duration. Pain level reassessed. Patient is alert, oriented x 3, equal unlabored respirations, skin warm/dry/pink. ll1
--- NOTE | 2024-06-05 12:05 | EDPHYS ---
Physician Documentation [facility] Name: Beronica Carter Age: 73 yrs Sex: Female : 1950 Arrival Date: 06/05/2024 Time: 09:19 Bed 20 Private MD: ED Physician Sean Estrella HPI: 06/05 10:18 This 73 yrs old Female presents to ER via Ambulatory with complaints of Diarrhea, sb4 Abdominal Pain. 10:18 Patient states that she believes she got food poisoning 3 days ago. States that she was sb4 experiencing nausea, vomiting, diarrhea, and abdominal cramping. States that the nausea and vomiting have improved but the diarrhea and the abdominal cramping have persisted. Denies any fever. Denies any blood in her stool. Has not taken any [id number] medications. Historical: - Allergies: 10:07 PENICILLINS; tm6 - PMHx: 10:07 Hypertensive disorder; Anxiety; Gastroesophageal reflux disease; tm6 - PSHx: 10:07 mastectomy; Total abdominal hysterectomy; tm6 - Immunization history:: Flu vaccine is up to date. - Infectious Disease History:: Denies. - Social history:: Smoking status: Patient denies any tobacco usage or history of. ROS: 10:18 Constitutional: Negative for fever, chills, and weight loss, sb4 10:18 Abdomen/GI: Positive for abdominal pain, diarrhea, abdominal cramps, 10:18 All other systems are negative, Exam: 10:18 Head/Face: Normocephalic, atraumatic. Eyes: Extra-ocular motions intact. Periorbital sb4 areas with no swelling, redness, or edema. ENT: Mucous membranes moist. Cardiovascular: Regular rate and rhythm with a normal S1 and S2. Respiratory: No increased work of breathing, no retractions or nasal flaring. Skin: Warm, dry with normal turgor. Normal color with no rashes, no lesions, and no evidence of cellulitis. 10:18 Constitutional: The patient appears alert, awake, uncomfortable, 10:18 Abdomen/GI: Inspection: abdomen appears normal, Bowel sounds: normal, Palpation: soft, mild abdominal tenderness, in the right upper quadrant and right lower quadrant, Vital Signs: 10:06 BP 144 / 87; Pulse 67; Resp 17; Temp 98.1(O); Pulse Ox 98% on R/A; MAP 105 mmHg; Weight tm6 62.6 kg; Height 5 ft. 3 in. ; Pain 4/10; 12:20 BP 141 / 81; Pulse 61; Resp 16; Pulse Ox 98% ; Pain 0/10; ll1 10:06 Body Mass Index 24.45 (62.60 kg, 160.02 cm) tm6 10:06 Pain Scale: Adult tm6 12:20 Pain Scale: Adult ll1 MDM: 10:12 Medical Screening Exam initiated sb4 12:05 Data reviewed: vital signs, nurses notes, lab test result(s), radiologic studies, and sb4 as a result, I will discharge patient. Counseling: I had a detailed discussion with the patient and/or guardian regarding the historical points, exam findings, and any diagnostic results supporting the discharge/admit diagnosis, lab results, radiology results, to return to the emergency department if symptoms worsen or persist or if there are any questions or concerns that arise at home. 06/05 10:12 Order name: CBC with Diff; Complete Time: 10:43 sb4 06/05 10:12 Order name: CMP; Complete Time: 10:55 sb4 06/05 10:12 Order name: Lipase; Complete Time: 10:55 sb4 06/05 10:12 Order name: Urinalysis w/ reflexes; Complete Time: 11:52 sb4 06/05 11:56 Order name: Urine Culture sb4 06/05 10:12 Order name: CT Abd/Pelvis - IV Contrast Only; Complete Time: 11:34 sb4 06/05 10:12 Order name: IV Saline Lock; Complete Time: 10:23 sb4 06/05 10:12 Order name: Labs collected and sent; Complete Time: 10:23 sb4 Administered Medications: 10:38 Drug: Ondansetron IVP 4 mg IVP once; over 2 minutes Route: IVP; Site: right antecubital;ll1 11:46 Follow up: Response: No adverse reaction; Nausea is decreased; RASS: Alert and Calm (0) ll1 10:45 Drug: NS 0.9% IV 1000 ml IV at 1 bolus Per protocol; to be given as a bolus over 60 ll1 minutes Route: IV; Rate: 1 bolus; Site: right antecubital; 12:19 Follow up: Response: No adverse reaction; IV Status: Completed infusion; IV Intake: ll1 1000ml 11:46 Drug: Loperamide PO 4 mg PO once Route: PO; ll1 12:20 Follow up: Response: No adverse reaction ll1 Disposition: 12:53 Co-signature as Attending Physician, Sean Estrella MD I reviewed the patient's care rn provided by the Advanced Practice Provider and agree with the diagnosis and treatment plan. Disposition Summary: 06/05/24 12:05 Discharge Ordered Notes: Location: Home sb4 Problem: new sb4 Symptoms: have improved sb4 Condition: Stable sb4 Diagnosis - Noninfective gastroenteritis and colitis, unspecified sb4 - UTI/ Urinary tract infection, site not specified sb4 Followup: sb4 - With: Emergency Department - When: As needed - Reason: Trouble breathing, Worsening of condition Discharge Instructions: - Discharge Summary Sheet sb4 - Food Choices to Help Relieve Diarrhea, Adult sb4 - Viral Gastroenteritis, Adult sb4 - Urinary Tract Infection, Adult, [id number] sb4 Forms: - Antibiotic Education sb4 - Patient Portal Instructions sb4 - Leadership Thank You Letter sb4 Prescriptions: - Imodium A-D 2 mg Oral tablet - take 0.5 tablet ORAL route every hour as needed for loose stool; do not exceed sb4 total dose of 4 mg per 24 hrs; 12 tablet; Refills: 0, Product Selection Permitted - Macrobid 100 mg Oral Capsule - take 1 capsule ORAL route every 12 hours for 7 days; 14 capsule; Refills: 0, sb4 Product Selection Permitted - dicyclomine 10 mg Oral capsule - take 1 capsule ORAL route 3 times per day PRN abdominal cramping; 12 capsule; sb4 Refills: 0, Product Selection Permitted Signatures: Dispatcher [employer] Sean Lorenzana MD MD rn Lewis, Lynsay, RN RN ll1 Nelida Fay PA-C PA-C sb4 William Mendez RN RN tm6 Corrections: (The following items were deleted from the chart) 11:57 11:57 Urine Culture+[id number].BRZ ordered. CHELI BOWER
[2024-06-05 12:29] VITALS: TEMP 98.1; O2SAT 98
[2024-06-05 12:31] VITALS: BP 141/81
== END 2024-06-05 12:21 | disposition home or self-care (01) ==
LOC: ER 09:19
DX: K52.9 Noninfective gastroenteritis and colitis, unspecified (principal); N39.0 Urinary tract infection, site not specified
CPT/HCPCS: 96361; 87088; 85025; 81001; 87086; 36415; 83690; 80053; 74177; 96374; 99284; Q9967; J2405; J7030